=== PATIENT | female | born 1965 | race Caucasian/White ===

== ENCOUNTER → 2016-09-26 | Outpatient (CLI) | payer OTHER ==
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
== END | disposition home or self-care (01) ==
LOC: RADMRIMAIN 18:33
PROVIDERS: ATTEND Psychiatry & Neurology Neurology
DX: M50.122 Cervical disc disorder at C5-C6 level with radiculopathy (principal)
CPT/HCPCS: 72141

== ENCOUNTER → 2017-02-25 | Outpatient (CLI) | payer OTHER ==
--- NOTE | 2017-02-26 07:31 | WWHP ---
CHIEF COMPLAINT: The patient is here for her routine gynecologic exam and mammogram. HPI: This is a 51-year-old G2, P1-0-1-1 with an LMP of 2004. The patient is here to establish with this office. She states it has been about three to four years since her last pelvic exam. She has been amenorrhea since her endometrial ablation in 2004. She states she does have cramping that seems to occur month;y and is noted on the left side. She states she usually will only use over the counter pain medication for this. She states this has been going on for many years. She states she does have a history of endometriosis. PAST MEDICAL HISTORY: Chronic hypertension, bronchial asthma, elevated cholesterol, chronic neck problems and pain. MEDICATIONS: Zanaflex 4 mg t.i.d., albuterol inhaler 2 puffs p.r.n., Restoril 50 mg daily p.r.n., lisinopril 40 mg daily, TriCor 145 mg daily. ALLERGIES: ULTRAM and LIPITOR. PAST SURGICAL HISTORY: section 1986, tubal ligation in 1993, endometrial ablation 2004. PAST OB HISTORY: One section and one voluntary termination of . PAST STUDENT FINANCE ADVISOR HISTORY: She does have history of endometriosis. She has no history of STDs. SOCIAL HISTORY: She admits to smoking one pack of cigarettes per day and denies alcohol and drug use. She is single, but has been with her boyfriend for about 7 months and lives with him. She does not work outside the home. FAMILY HISTORY: Mother had pancreatic cancer. Sister has breast cancer. She has a cousin who has breast cancer and aunt with uterine cancer and another aunt with ovarian cancer. Mother also has diabetes. Father had a CVA. REVIEW OF SYSTEMS: Weight has been stable. She denies respiratory or cardiac problems. GI: She has been having some constipation. PHYSICAL EXAM: Initial blood pressure 185/95, repeat blood pressure 150/97. This is a well developed, well nourished white female who is alert and oriented x3 in no acute distress. HEENT is within normal limits. Neck supple without mass or thyromegaly. Chest and lungs: clear to auscultation. Heart: Regular rate and rhythm. Breasts are without mass or discharge. Axillary exam is negative for adenopathy. Back negative for cva tenderness. Abdomen is soft, nontender without palpable masses. Pelvic exam: Normal external genitalia. Cervix and vagina appear normal. There is no evidence of prolapse. There is no cervical motion tenderness. The uterus is mid position, nongravid size and nontender. There are no palpable adnexal masses or tenderness. Rectal exam is negative for mass or tenderness and is negative for occult blood. Extremities are nontender. IMPRESSION: 1. A 51-year-old female who is status post endometrial ablation. 2. Amenorrhea since her endometrial ablation. 3. Cyclic left pelvic cramping. Differential diagnoses will include ovulatory pain, endometriosis, adenomyosis, or pelvic cysts. PLAN: 1. PAP smear was performed. 2. Self breast examination was discussed. 3. Mammogram will be done today. 4. Pelvic ultrasound will be ordered. 5. I recommend that she follow up with Dr. Lan as soon as possible regarding her blood pressure. 6. I recommend that she quit smoking. 7. Osteoporosis prevention was discussed. 8. She will return in one year. PAIGE
--- NOTE | 2017-02-27 08:37 | MM ---
Reason for exam: screening (asymptomatic). Last mammogram was performed 10 years and 10 months ago. History: Family history of breast cancer in mother at age 55, breast cancer in paternal cousin, and breast cancer in sister at age 55. Physical Findings: A clinical breast exam by your physician is recommended on an annual basis and results should be correlated with mammographic findings. MG Screening Mammo w CAD Bilateral CC and MLO view(s) were taken. Prior study comparison: April 13, 2006, CAD bilateral diagnostic mammogram. November 17, 2003, bilateral diagnostic mammogram. The breast tissue is heterogeneously dense. This may lower the sensitivity of mammography. Right breast grouped microcalcifications upper outer quadrant at a middle depth. Left breast nodular focal asymmetry lower inner quadrant at a middle depth. ASSESSMENT: Incomplete: need additional imaging evaluation, BI-RAD 0 RECOMMENDATION: Special view mammogram of both breasts. If lesion persists on supplemental views, image directed ultrasound is recommended. [facility] will attempt to contact patient to return for supplemental views and ultrasound if indicated.
== END ==
LOC: WWCWWP 09:57
PROVIDERS: ATTEND Obstetrics & Gynecology
DX: Z12.31 Encounter for screening mammogram for malignant neoplasm of breast (principal)

== ENCOUNTER → 2017-03-06 | Outpatient (CLI) | payer OTHER ==
--- NOTE | 2017-03-09 08:56 | MM ---
Reason for exam: additional evaluation requested from abnormal screening. Last mammogram was performed less than 1 month ago. History: Family history of breast cancer in mother at age 55, breast cancer in paternal cousin, and breast cancer in sister at age 55. Physical Findings: Nurse did not find any significant physical abnormalities on exam. MG Work Up Mamm w CAD BILAT Bilateral CC and MLO view(s) were taken. Prior study comparison: February 25, 2017, bilateral MG screening mammo w CAD. April 13, 2006, CAD bilateral diagnostic mammogram. Finding #1: There is a 7 mm equal density (isodense), obscured round mass located 4 cm from the nipple in the 7 o'clock lower inner quadrant, middle position of the left breast. Finding #2: There are round, heterogeneous, grouped/clustered calcifications in the upper outer quadrant, middle position of the right breast, 5cm from the nipple. These results were verbally communicated with the patient and result sheet given to the patient on 03/06/17. ASSESSMENT: Suspicious, BI-RAD 4 RECOMMENDATION: Ultrasound of the left breast. Stereotactic core biopsy of the right breast. (right breast calcifications) Called Dr. Mao with mammographic findings and has scheduled an appointment for the patient for 03/17/17 at 3:[address] Berg. Right biopsy scheduled for 03/12/17 at 2:20. PRELIMINARY REPORT CALLED AND FAXED TO DR. BERG ON 03/09/17/TP.
--- NOTE | 2017-03-09 08:58 | USB ---
Reason for exam: additional evaluation requested from abnormal screening. History: Family history of breast cancer in mother at age 55, breast cancer in paternal cousin, and breast cancer in sister at age 55. US Breast Workup Limited LT Left breast ultrasound demonstrates a 0.4 x 0.4 x 0.4cm cystic lesion at 7 o'clock, that correlates with mammographic findings. These results were verbally communicated with the patient and result sheet given to the patient on 03/06/17. ASSESSMENT: Benign, BI-RAD 2 RECOMMENDATION: Stereotactic core biopsy. (right breast calcifications) Called Dr. Mao with mammographic findings and has scheduled an appointment for the patient for 03/17/17 at 3:[address] Berg. Right biopsy scheduled for 03/12/17 at 2:20. PRELIMINARY REPORT CALLED AND FAXED TO DR. BERG ON 03/09/17/TP.
== END | disposition home or self-care (01) ==
LOC: RADMAMWWP 13:32
PROVIDERS: ATTEND Obstetrics & Gynecology
DX: R92.8 Other abnormal and inconclusive findings on diagnostic imaging of breast (principal)
CPT/HCPCS: 76642; G0204

== ENCOUNTER → 2017-03-06 | Outpatient (CLI) | payer OTHER ==
--- NOTE | 2017-03-06 14:37 | US ---
EXAMINATION TYPE: US pelvic complete DATE OF EXAM: 03/06/2017 COMPARISON: NONE CLINICAL HISTORY: R10.2 Pelvic Pain. Left pelvic pain x 2 weeks, 2, para 1, 1, histo ry of and tubal ligation TECHNIQUE: Transabdominal (TA) Date of LMP: 2004 EXAM MEASUREMENTS: Uterus: 8.7 x 4.8 x 5.6 cm Endometrial Stripe: 0.5 cm Right Ovary: 2.2 x 1.5 x 1.9 cm Left Ovary: 3.4 x 2.6 x 2.2 cm 1. Uterus: anteverted, heterogeneous with multiple hypoechoic lesions throughout with largest measur ing 2.4cm 2. Endometrium: appears wnl 3. Right Ovary: wnl 4. Left Ovary: 2.1cm cystic area 5. Bilateral Adnexa: wnl 6. Posterior cul-de-sac: wnl IMPRESSION: 1. Uterine fibroids. 2. 2.1 cm left ovarian cyst. Follow-up 6 weeks is recommended.
== END | disposition home or self-care (01) ==
LOC: RADUSWWP 13:29
PROVIDERS: ATTEND Obstetrics & Gynecology
DX: D25.9 Leiomyoma of uterus, unspecified (principal); N83.202 Unspecified ovarian cyst, left side
CPT/HCPCS: 76856

== ENCOUNTER → 2017-03-12 | Day surgery (SDC) | payer OTHER ==
[2017-03-12 13:26] VITALS: RESP 16; BMI 25.7
--- NOTE | 2017-03-12 15:24 | MM ---
EXAMINATION TYPE: MG stereo VAD BX RT DATE OF EXAM: 03/12/2017 COMPARISON: Mammogram March 06, 2017 and older studies. CLINICAL HISTORY: Abnormal mammogram, suspicious group of calcifications. TECHNIQUE: Stereotactic guided core biopsy of right breast with clip placement and follow-up two-view mammogram.. FINDINGS: The procedure of stereotactic guided core biopsy was explained to the patient. Benefits, a lternatives, and risks were discussed. An informed consent was then obtained. [facility] was [facility]. Shortness pathway was cranial approach. I performed the localization then also performed the remainder of the procedure. Overlying skin is cleansed. Lidocai ne is used as anesthetic into the skin. Lidocaine with epinephrine is used as anesthetic into the michele per tissue. A vacuum assisted biopsy gun was used to obtain multiple core samples. The patient tolerated the procedure well without any immediate complication. The patient was kept in the radiology department for short stay after the procedure and then discharged home in stable condi tion. Targeted calcifications are identified in specimen mammogram. Post biopsy mammogram shows the clip to appear in satisfactory position relative to the targeted area of concern on the preprocedure images. No residual calcifications are identified. IMPRESSION: SUCCESSFUL, UNCOMPLICATED STEREOTACTIC GUIDED CORE BIOPSY OF AREA OF CONCERN IN THE RIGHT BREAST, FUL L PATHOLOGY RESULTS TO FOLLOW. Intermediate index of suspicion noted at time of procedure.
[2017-03-12 16:09] VITALS: BP 124/79; PULSE 75; TEMP 98
== END ==
LOC: RADMAMWWP 12:59
PROVIDERS: ATTEND Surgery
DX: R92.0 Mammographic microcalcification found on diagnostic imaging of breast (principal); N60.11 Diffuse cystic mastopathy of right breast; R92.8 Other abnormal and inconclusive findings on diagnostic imaging of breast; N60.31 Fibrosclerosis of right breast; N60.21 Fibroadenosis of right breast; Z88.8 Allergy status to other drugs, medicaments and biological substances; N60.81 Other benign mammary dysplasias of right breast
CPT/HCPCS: 88305; 19081; A4648; J2001

== ENCOUNTER 2017-11-17 11:25 | Day surgery (SDC) | payer OTHER ==
[2017-11-12 14:16] VITALS: BMI 27.8
[~2017-11-17 11:25] MED LIST: LACTATED RINGERS 1,000 ML IV SCH
[2017-11-17] MEDS ORDERED: LIDOCAINE 1% 20 ML VIAL (10MG/ML) FOR IV START INTRADERMA ONE (12:21)
[2017-11-17 12:22] VITALS: TEMP 97.9
[2017-11-17] MEDS ORDERED: PROPOFOL 10 MG/ML 20 ML VIAL IV ONE (13:04)
[2017-11-17] MEDS ORDERED: LIDOCAINE 1% INJ 10MG/ML (20 ML MDV) ONE (13:04)
[2017-11-17 13:38] VITALS: RESP 18
--- NOTE | 2017-11-17 13:43 | P.PCN ---
Date of Procedure: 11/17/17 Procedure(s) Performed: Procedure: Total colonoscopy and biopsy. Preoperative diagnosis: Change in bowel habits. Postoperative diagnosis: 1. Diminutive polyp in the distal sigmoid biopsied. 2. Grade 2 internal hemorrhoids without bleeding at the time of this exam.. Preparation: HalfLytely prep. Sedation: Was provided by anesthesia. Brief clinical history: The patient is a 52-year-old female who is referred for this evaluation for change in bowel habits. The patient reported having irritable bowel syndrome for several years. She has been having issues with constipation and may not have a bowel movement for several days. Denies bleeding or other alarm symptoms. This would be her first colonoscopy. Procedure: With the patient on her left lateral decubitus position and after informed consent and adequate sedation, the perianal area was inspected and it did not show any fissures or fistulas. There were no masses felt on digital rectal examination. The Olympus CFQ 160L video colonoscope was then inserted in the rectum in the usual fashion and advanced to the cecum. The mucosa appeared healthy. There was a diminutive polyp in the distal sigmoid which was biopsied but there were no large polyps or tumors seen or any obvious diverticular disease or other pathology. I retroflexed the endoscope in the rectum before the endoscope was withdrawn. The patient tolerated the procedure well. Plan: The patient was reassured. She will follow-up with you as planned and I recommended repeat exam in 5-10 years depending on pathology results.
[2017-11-17] MEDS ORDERED: ONDANSETRON 4 MG/2 ML VIAL IVP ONE (13:51)
[2017-11-17 14:17] VITALS: BP 134/75; PULSE 60
== END 2017-11-17 14:37 | disposition home or self-care (01) ==
LOC: ORWHC2ENDO 11:25
DX: K63.5 Polyp of colon (principal); K64.1 Second degree hemorrhoids; J44.9 Chronic obstructive pulmonary disease, unspecified; I10 Essential (primary) hypertension; E78.5 Hyperlipidemia, unspecified; Z88.8 Allergy status to other drugs, medicaments and biological substances; Z88.5 Allergy status to narcotic agent; F17.210 Nicotine dependence, cigarettes, uncomplicated; Z79.1 Long term (current) use of non-steroidal anti-inflammatories (NSAID); Z79.891 Long term (current) use of opiate analgesic; Z79.899 Other long term (current) drug therapy
CPT/HCPCS: 88305; 45380; J2405; J2001; J2704

== ENCOUNTER → 2018-01-05 | Outpatient (CLI) | payer OTHER ==
[2018-01-01 15:31] VITALS: BMI 29.5
[2018-01-05 12:28] VITALS: BP 139/75; PULSE 72; RESP 16
--- NOTE | 2018-01-05 20:50 | P.PAINCN ---
History of Present Illness - Reason for Consult Consult date: 01/05/18 - Chief Complaint Severe neck pain - History of Present Illness This is 52 years old female with a chronic history of severe neck pain with radiation to the upper extremity, pain started 2 years ago, she reported that the pain started while she was lifting the bag of dog food, the pain is constant and associated with numbness and tingling sensation more on the right upper extremity, associated with numbness and tingling sensation, she was done physical therapy without any benefit, and she had injection done by an urologist without any benefit, currently she is complaining of neck pain with numbness and tingling sensation ,but no weakness, she is able to use her upper extremity without difficulty, but the intensity of the pain interfering with her quality of life, the intensity of the pain 8/10 and increases to a 10 over 10, she is currently using Motrin 800 mg 3 times a day Lyrica 100 mg 3 times a day and [place] 7.5/325 every 6 hours, she denies any change in the bowel movement or urination she denies any motor or sensory deficits, and no fever or night sweats she denies any suicidal ideation Past Medical History Past Medical History: COPD, Hyperlipidemia, Hypertension, Musculoskeletal Disorder Additional Past Medical History / Comment(s): herniated discs in neck History of Any Multi-Drug Resistant Organisms: None Reported Past Surgical History: Section, Orthopedic Surgery, Tubal Ligation Additional Past Surgical History / Comment(s): RT LITTLE TOE SX. GLASS REMOVED FROM FACE Past Anesthesia/Blood Transfusion Reactions: Previous Problems w/ Anesthesia Additional Past Anesthesia/Blood Transfusion Reaction / Comm: woke up during surgery Past Psychological History: No Psychological Hx Reported Smoking Status: Current every day smoker Past Alcohol Use History: None Reported Additional Past Alcohol Use History / Comment(s): SMOKES 1/2 - 1PPD SINCE AGE 17 Past Drug Use History: None Reported - Past Family History Father Family Medical History: Coronary Artery Disease (CAD) Sister(s) Family Medical History: Cancer, Hypertension Additional Family Medical History / Comment(s): breast Medications and Allergies Home Medications Medication Instructions Recorded Confirmed Type Albuterol Inhaler [Ventolin Hfa 1 - 2 puff INHALATION Q6HR PRN 11/17/15 History Inhaler] Ibuprofen [Motrin] 800 mg PO Q6HR PRN 11/17/15 01/05/18 History Fenofibrate Nanocrystallized 145 mg PO DAILY 03/09/17 01/05/18 History [Tricor] Lisinopril 40 mg PO DAILY 03/09/17 01/05/18 History Orphenadrine [Norflex] 100 mg PO Q12H 03/09/17 01/05/18 History Ezetimibe [Zetia] 10 mg PO DAILY 11/12/17 01/05/18 History Pravastatin Sodium [Pravachol] 80 mg PO DAILY 11/12/17 01/05/18 History Pregabalin [Lyrica] 100 mg PO TID 11/12/17 01/05/18 History amLODIPine [Norvasc] 10 mg PO DAILY 11/12/17 01/05/18 History HYDROcodone/APAP 7.5-325MG [[place] 1 tab PO Q6HR PRN 01/01/18 01/05/18 History 7.5-325] Varenicline [Chantix Continuing 1 mg PO BID 01/01/18 01/05/18 History Pack] Allergies Allergy/AdvReac Type Severity Reaction Status Date / Time atorvastatin [From Lipitor] Allergy Nausea Verified 01/05/18 12:18 tramadol Allergy Nausea & Verified 01/05/18 12:18 Vomiting Physical Exam Vitals: Vital Signs Pulse Resp BP Pulse Ox 01/05/18 12:19 72 16 139/75 98 Social history : smoker , NO ETOH , NO Illegal drugs use . Review of Systems : 1- Constitutional : no chills , no fever , no night sweats , 2- Ears : no ear discharge , no change in hearing 3-Nose, Mouth ,Throat ; no bleeding gums, no sore throat , no epistaxis , 4-Cardiovascular : Denies chest pain, , no orthopnea , no palpitation 5-Respiratory : Denies cough , no dyspnea , no hemoptysis 6-Gastrointestinal :, no change in bowel habits , no coffee- ground emesis . 7-Genitourinary : No hematuria , no discharge , no incontinence, 8-Musculoskeletal : No gait dysfunction , report neck pain , right upper extremity 9- Neurological : no ataxia , no tremor , no sezure , 10-Psychatric , no suicidal ideation no hallucination 11- Endocrine : no cold intolerence , no polyuria , no polydypsia , 12-Hematologic : no easy bleeding , no easy brusing , 13-Allergic / immunology : no angioedema , no wheezing ,no allergic rhinitis 14-Integumentary : no brttle nails , no change hair / nails , no foot/leg ulcers . Physical Examinations : 1-Constitutional : Cooperative , not in acute distress . 2-HEENT : nech ; supple , no Lymphadenopathy , no Thyromegaly , :eyes , no icterus, no photophobia . ENT : , normal oropharynx , no Thrush 3- Respiratory : Chest clear to auscultations Bilaterally , no wheezing . 4- Cardiovascular : regular rate and rhythem , S1 , S2 , no S3 , no S4. 5- Gastrointestinal: abdomen soft no tenderness , no organomegally . 6- Genitourinary : Defferred . 7-Integumentary : No cellulitis , no ulcers , normal skin turgor , no cyanotic . 8- neurologic : Cranial nerve II to XII intact , no focal neurological deffecit 9-psychatric : alert , oriented X 3 , appropriate affect , intact judgment and insight . 10-Lymphatic : no Lymphadenopathy. 11- musculoskeltal: normal gait Cervical Spine motor stregnth in the deltoid and biceps, normal right side , normal Left side motor stregnth biceps and the wrist extensors normal right side ,normal left side . motor stregnth in the triceps muscle . normal Right side , normal Left side deep tendon reflexes normal at the biceps , normal at Brachioradialis , normal at triceps. positive cervical facet loading test . Multiple trigger point in the right sided cervical paravertebral muscles Lumber spine moter stegnth lower extremities ,thigh and legs 5/5 Right side , 5/5 Left side Results Comments: MRI of the cervical spine= cervical disc herniation at C5 6 and C6 7 Nerve conduction studies/EMG showed ulnar nerve compression and C8 nerve root irritation Assessment and Plan Plan: Assessment and plan= cervical radiculopathy , cervical disc herniation Patient will be good candidate to have cervical epidural steroid injection under fluoroscopy guidance at the C7-T1 level Patient currently getting prescription for Motrin 800 mg 3 times a day Lyrica the milligrams 3 times a day and [place] 7.5/ 320 far from her primary care. Time with Patient: Greater than 30 PQRS Measure Charge Sheet Measure #130: Documentation of Current Meds in Medical Chart: Patient's medications documented in chart Measure #226: Tobacco Use: Screen & Cessation Intervention: Pt screened for tobacco use AND intervention given Measure #111: Pneumonia Vaccination: Pneumococcal vaccine NOT administered or previously given Measure #47: Advance Care Plan: Advance care planning discussed & documented, plan or surrogate given Measure #412: Opioid Treatment Agreement: No documentation of signed opioid treatment agreement Measure #408: Opioid Therapy Follow-up Evaluation: Patient had NO f/u eval minimum every 3 months during opioid therapy Measure #317: Preventitive Care & Scrn High Bld Press & F/U: Pre-hypertensive or hypertensive BP documented, pt will f/u with PCP Measure #128: Body Mass Index (BMI) Screening & Follow-up: BMI documented ABOVE normal parameters - f/u documented Measure #131: Pain Assessment & Follow-up: Pain positive & plan documented, Follow-up scheduled Measure #431: Unhealthy Alcohol Use Preventative Care & Scrn: Patient identified as unhealthy alcohol user; counseling given PQRS Narrative: Smoking Status Current every day smoker Do You Want the Pneumonia No Vaccine AT THIS TIME? Blood Pressure 139/75 Pain Intensity [Bilateral 9 Posterior Neck] Scale Used Numeric (1 - 10) Hx Alcohol Use (MH) No Home Medications: Ambulatory Orders Albuterol Inhaler [Ventolin Hfa Inhaler] 1 - 2 puff INHALATION Q6HR PRN Ibuprofen [Motrin] 800 mg PO Q6HR PRN 11/17/15 Fenofibrate Nanocrystallized [Tricor] 145 mg PO DAILY 03/09/17 Lisinopril 40 mg PO DAILY 03/09/17 Orphenadrine [Norflex] 100 mg PO Q12H 03/09/17 Ezetimibe [Zetia] 10 mg PO DAILY 11/12/17 Pravastatin Sodium [Pravachol] 80 mg PO DAILY 11/12/17 Pregabalin [Lyrica] 100 mg PO TID 11/12/17 amLODIPine [Norvasc] 10 mg PO DAILY 11/12/17 HYDROcodone/APAP 7.5-325MG [[place] 7.5-325] 1 tab PO Q6HR PRN 01/01/18 Varenicline [Chantix Continuing Pack] 1 mg PO BID 01/01/18
== END | disposition home or self-care (01) ==
LOC: PNWHC3 12:02
PROVIDERS: ATTEND Specialist
DX: G89.29 Other chronic pain (principal); M50.222 Other cervical disc displacement at C5-C6 level; M54.12 Radiculopathy, cervical region; I10 Essential (primary) hypertension; M79.9 Soft tissue disorder, unspecified; E78.5 Hyperlipidemia, unspecified; J44.9 Chronic obstructive pulmonary disease, unspecified; F17.200 Nicotine dependence, unspecified, uncomplicated; Z79.899 Other long term (current) drug therapy; Z79.1 Long term (current) use of non-steroidal anti-inflammatories (NSAID); Z79.891 Long term (current) use of opiate analgesic; Z88.6 Allergy status to analgesic agent; Z88.8 Allergy status to other drugs, medicaments and biological substances
CPT/HCPCS: 99211

== ENCOUNTER 2018-02-01 09:56 | Day surgery (SDC) | payer OTHER ==
[2018-01-27 11:45] VITALS: BMI 30.1
[2018-02-01 10:40] VITALS: RESP 18; TEMP 98.4
[2018-02-01] MEDS ORDERED: LIDOCAINE 1% 20 ML VIAL (10MG/ML) FOR IV START INTRADERMA ONE (10:42)
--- NOTE | 2018-02-01 11:31 | P.PCN ---
Date of Procedure: 02/01/18 Procedure(s) Performed: . PROCEDURE 1. Cervical epidural steroid injection under fluoroscopic guidance, C7-T1 2. Cervical epidurogram. PREOPERATIVE DIAGNOSIS: 1- Cervical herniated Disc Diseases 2- Cervical radiculopathy. POSTOPERATIVE DIAGNOSIS: : 1- Cervical herniated Disc Diseases , 2- Cervical radiculopathy. ANESTHESIA: Local anesthesia with 1% lidocaine and IV sedation with Versed 2 mg and Fentanyl 50 mcg. EBL 0 PROCEDURE INDICATION: The patient with neck pain and radiculitis unresponsive to conservative treatment consents for procedure. PROCEDURE DESCRIPTION / TECHNIQUE: The patient was seen and identified in the preoperative area. Risks, benefits, complications, including but not limited to infections ,bleeding , allergic reactions to the medications ,and not complete pain releife, and alternatives were discussed with the patient, the patient agreed to proceed with the procedure and signed the consent. Patient was taken to the OR and time out was completed. The patient was placed in the prone position on the procedure table. A pillow was placed under the patients chest to increase the cervical interlaminar space. The cervical area was prepped and draped in the usual sterile fashion. Vital signs were closely monitored during the procedure. Conscious sedation was used during the procedure to decrease patients anxiety. Using anterior-posterior fluoroscopy, the C7-T1 interlaminar space was identified and the skin over this site was marked and then infiltrated with 1% lidocaine subcutaneously. Subsequently, a 20-gauge 3-1/2-inch Tuohy epidural needle was inserted and advanced toward the epidural space by means of the `` hanging-drop technique and guided by AP and lateral fluoroscopy. The correct needle position in the epidural space was verified with the injection of 2 mL of the water soluble contrast dye Isovue-200 and observing an excellent epidurogram with the epidural spread of the dye, after negative aspiration for blood and CSF and in the absence of paresthesias. Again after negative aspiration, mixture containing 20 mg Dexamethasone and 2 ml of preservative- free normal saline injected and a washout of epidurogram was seen. Needle was withdrawn intact, skin was cleansed, and bandages were applied. Complications= none. Disposition= patient was placed in supine position and transferred to the recovery room area in stable condition and there was no evidence of upper or lower extremity motor or sensory deficit after the procedure patient was discharged from recovery room after discharge criteria met and home discharge instructions was given by the staff and patient will follow with the pain clinic in 2-4 weeks
[2018-02-01] MEDS ORDERED: KETOROLAC 30 MG/ML 1 ML VIAL IVP ONE (11:49)
[2018-02-01 11:57] VITALS: BP 119/81; PULSE 78
[2018-02-01] MEDS ORDERED: IV FLUID CONTINUATION 700 ML IV ONE (11:59)
--- NOTE | 2018-02-01 13:02 | FL ---
EXAMINATION TYPE: FL guided pain mgmt statistic DATE OF EXAM: 02/01/2018 HISTORY: Flouroscopy time 2 seconds of fluoroscopy provided. IMPRESSION: 1. Fluoroscopy time.
== END 2018-02-01 12:11 | disposition home or self-care (01) ==
LOC: ORPAIN 09:56
PROVIDERS: ATTEND Specialist
DX: M50.10 Cervical disc disorder with radiculopathy, unspecified cervical region (principal); J44.9 Chronic obstructive pulmonary disease, unspecified; E78.5 Hyperlipidemia, unspecified; I10 Essential (primary) hypertension; F17.210 Nicotine dependence, cigarettes, uncomplicated; Z79.899 Other long term (current) drug therapy; Z98.51 Tubal ligation status; Z88.5 Allergy status to narcotic agent; Z88.8 Allergy status to other drugs, medicaments and biological substances
CPT/HCPCS: 81025; 62321; J2250; J1100; J3010; J1885; Q9966

== ENCOUNTER → 2018-02-18 | Outpatient (CLI) | payer OTHER ==
[2018-02-18 14:22] VITALS: BP 137/87; PULSE 75; RESP 16
--- NOTE | 2018-02-20 22:04 | P.PAINPG ---
Subjective Progress Note Date: 02/18/18 Principal diagnosis: Cervical radiculopathy this is a 52-year-old will move the history of neck pain and arm pain. She presents today in follow-up after having undergone cervical epidural steroid injections. She reports that these did help reduce her pain. She denies any doubt about this function. She is interested in instructions regarding further pain management. Objective - Vital Signs Vital signs: Vital Signs Temp Pulse 75 02/18/18 14:09 Resp 16 02/18/18 14:09 BP 137/87 02/18/18 14:09 Pulse Ox 98 02/18/18 14:09 - Exam General: the patient is alert and oriented. She is not sedated. She appears in no acute distress. Respiratory: patient is mostly clear to auscultation. She does have some expiratory wheezes with laughing. cardiovascular: regular rate and rhythm abdomen: nontender nondistended extremities: no cyanosis clubbing or edema musculoskeletal: she demonstrates good strength symmetrically in the upper and lower extremities neurologic: no focal motor or sensory deficits in the upper or lower extremities. Reflexes are preserved in the upper extremities. Assessment and Plan (1) Cervical radiculopathy Narrative/Plan: Patient reports could benefit from previous cervical steroid injection. She can follow up for repeated this procedure on an as-needed basis provided she receives less than three injections in six months. Time. She will continue to receive her medications from her primary care physician. Current Visit: Yes Status: Acute Code(s): M54.12 - RADICULOPATHY, CERVICAL REGION SNOMED Code(s): 73345605 PQRS Measure Charge Sheet Measure #130: Documentation of Current Meds in Medical Chart: Patient's medications documented in chart Measure #226: Tobacco Use: Screen & Cessation Intervention: Pt screened for tobacco use AND intervention given Measure #111: Pneumonia Vaccination: Pneumococcal vaccine NOT administered or previously given Measure #47: Advance Care Plan: Advance care planning discussed & documented, pt chose/unable to give Measure #412: Opioid Treatment Agreement: No documentation of signed opioid treatment agreement Measure #408: Opioid Therapy Follow-up Evaluation: Patient had NO f/u eval minimum every 3 months during opioid therapy Measure #317: Preventitive Care & Scrn High Bld Press & F/U: Normal blood pressure, f/u not required Measure #128: Body Mass Index (BMI) Screening & Follow-up: BMI documented ABOVE normal parameters - f/u documented Measure #131: Pain Assessment & Follow-up: Pain positive & plan documented Measure #431: Unhealthy Alcohol Use Preventative Care & Scrn: Patient not identified as an unhealthy alcohol user PQRS Narrative: Smoking Status Current every day smoker Do You Want the Pneumonia No Vaccine AT THIS TIME? Blood Pressure 137/87 Pain Intensity [Posterior Neck 8 ] Scale Used Numeric (1 - 10) Hx Alcohol Use (MH) No Home Medications: Ambulatory Orders Albuterol Inhaler [Ventolin Hfa Inhaler] 1 - 2 puff INHALATION Q6HR PRN Ibuprofen [Motrin] 800 mg PO Q6HR PRN 11/17/15 Fenofibrate Nanocrystallized [Tricor] 145 mg PO DAILY 03/09/17 Lisinopril 40 mg PO DAILY 03/09/17 Orphenadrine [Norflex] 100 mg PO DAILY 03/09/17 Ezetimibe [Zetia] 10 mg PO DAILY 11/12/17 Pravastatin Sodium [Pravachol] 80 mg PO DAILY 11/12/17 Pregabalin [Lyrica] 100 mg PO TID 11/12/17 amLODIPine [Norvasc] 10 mg PO DAILY 11/12/17 HYDROcodone/APAP 7.5-325MG [[place] 7.5-325] 1 tab PO Q6HR PRN 01/01/18 Varenicline [Chantix Continuing Pack] 1 mg PO BID 01/01/18 Ergocalciferol (Vitamin D2) [Vitamin D2] 50,000 unit PO Q30D 02/16/18 Controlled Substance Measures - Controlled Substance Measures Is patient prescribed a controlled substance at discharge?: No
== END | disposition home or self-care (01) ==
LOC: PNWHC3 13:25
PROVIDERS: ATTEND Pain Medicine Pain Medicine
DX: M54.12 Radiculopathy, cervical region (principal); F17.200 Nicotine dependence, unspecified, uncomplicated; Z79.899 Other long term (current) drug therapy; Z79.1 Long term (current) use of non-steroidal anti-inflammatories (NSAID); Z79.891 Long term (current) use of opiate analgesic
CPT/HCPCS: 99211

== ENCOUNTER 2018-03-04 06:06 | Day surgery (SDC) | payer OTHER ==
[2018-03-01 14:58] VITALS: BMI 29.2
[2018-03-04 06:32] VITALS: TEMP 98
[2018-03-04] MEDS ORDERED: LIDOCAINE 1% 20 ML VIAL (10MG/ML) FOR IV START INTRADERMA ONE (06:43)
[2018-03-04] MEDS ORDERED: LACTATED RINGERS 1,000 ML IV ONE (06:43)
--- NOTE | 2018-03-04 07:45 | P.PCN ---
Date of Procedure: 03/04/18 Procedure(s) Performed: Procedure= Thoracic epidural blood patch. Preoperative diagnosis= postdural puncture headache. Postoperative diagnoses= post dural puncture headache. Indication for the procedure= patient developed headache after cervical epidural steroid injection, the procedure was done 02/01/2018, patient reports she continued to have a headache after the procedure, and the headache is positional increased with sitting position or standing position, relieved with supine position, patient tried caffeine and naproxen for a few weeks, headache persists in spite of conservative treatment, there is no focal neurological deficit, no fever, no neck stiffness, headache worse with sitting and standing position, and improved with lying supine, for this reason patient is a good candidate for epidural blood patch. anesthesia= IV sedation with Versed 1 mg ,and fentanyl 50 mc ,and local infiltration with lidocaine 1% 3 mL. Complications= none. Description of the procedure= patient identified risks and benefits of the procedure explained to the patient and patient agreed with proceeding, vital signs monitored during the procedure and IV sedation given to decrease anxiety, Back lumbar area prepped with chlorhexidine 3 times, then drape applied the local infiltration of the skin and subcutaneous tissue with lidocaine 1% 3 mL at T1-T2 interlaminar space then 20-gauge Tuohy needle advanced slowly at T1- T2 interlaminar space, There was positive loss of resistance to normal saline, no heme no paresthesia no cerebrospinal fluid, needle placement confirmed with the fluoroscopy and with the injection of Isovue 200 and 3 mL injected after negative aspiration , which showed appropriate spread in the epidural space , the needle placement confirmed with a lateral view , then after negative aspiration , 7 ML of the blood taken from the patient left wrist area, under strict sterile technique, and after the area prepped with a chlorhexidine 3 times using 20-gauge Angiocath , and under sterile techn, the blood injected in the epidural space after negative aspiration for heme or CSF and there was no paresthesia ,the blood injected slowley ,then the needle removed intact the skin cleaned and the , bandage applied ,and patient discharged home in stable condition after discharge criteria met, and patient will follow up with the clinic in 1 weeks
[2018-03-04] MEDS ORDERED: IV FLUID CONTINUATION 1,000 ML IV ONE (07:46)
[2018-03-04 08:00] VITALS: BP 123/83; PULSE 73; RESP 18
--- NOTE | 2018-03-04 08:41 | FL ---
EXAMINATION TYPE: FL guided pain mgmt statistic DATE OF EXAM: 03/04/2018 COMPARISON: NONE HISTORY: Fluoroscopic guidance for cervical blood patch TECHNIQUE: Fluoroscopy. FINDINGS/IMPRESSION: Fluoroscopic guidance was provided during procedure performed by Dr. Escobar. A total of 8 seconds of fluoroscopic time was utilized during the procedure and 2 spot images was ac quired demonstrating localization over the cervical thoracic spine.
== END 2018-03-04 08:16 | disposition home or self-care (01) ==
LOC: ORPAIN 06:06
PROVIDERS: ATTEND Specialist
DX: G97.1 Other reaction to spinal and lumbar puncture (principal); Z88.5 Allergy status to narcotic agent; Z88.8 Allergy status to other drugs, medicaments and biological substances
CPT/HCPCS: 81025; 62273; J2250; J3010; Q9966; 99152

== ENCOUNTER → 2018-04-06 | Outpatient (CLI) | payer OTHER ==
[2018-04-06 10:52] VITALS: BP 134/83; PULSE 74; TEMP 98.2; BMI 33.5
--- NOTE | 2018-04-06 11:48 | P.HPOB ---
History of Present Illness H&P Date: 04/06/18 Chief Complaint: The patient is here for her routine gynecologic exam and mammogram. This is a 52 year old with an LMP of 2004. She status post endometrial ablation and has been amenorrhea Since the ablation in 2004. She is without gynecologic complaints and denies any hot flashes or vaginal bleeding. She had an abnormal mammogram last year and underwent a right breast biopsy which showed fibrocystic changes. She has not had a mammogram since then. She was having some left pelvic pains and had a pelvic ultrasound showed a 2.1 cm left ovarian cyst with internal echoes. I had recommended a repeat ultrasound in 6 to 8 weeks. She states she did not do this. The pain has resolved. Review of Systems She states she has gained about 50 pounds over the last year and attributes this to taking Tricor. She has since discontinued this medication. She denies respiratory, cardiac, or G.I. problems. She is currently being seen for a "bulging right eye." Past Medical History Past Medical History: Asthma, COPD, Hyperlipidemia, Hypertension, Musculoskeletal Disorder Additional Past Medical History / Comment(s): herniated discs in neck; "Spinal Headache from last Epidural". Glaucoma. 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 She did have a history of endometriosis. History of Any Multi-Drug Resistant Organisms: None Reported Past Surgical History: Section, Orthopedic Surgery, Tubal Ligation, Uterine Ablation (2004) Additional Past Surgical History / Comment(s): RT LITTLE TOE SX. GLASS REMOVED FROM FACE Past Anesthesia/Blood Transfusion Reactions: Previous Problems w/ Anesthesia Additional Past Anesthesia/Blood Transfusion Reaction / Comment(s): TOOK LONGER WAKING UP Past Psychological History: No Psychological Hx Reported Smoking Status: Current every day smoker (Previous lead one pack of cigarettes, now down to half pack per day.) Past Alcohol Use History: None Reported Additional Past Alcohol Use History / Comment(s): SMOKES 1/2 - 1PPD SINCE AGE 17 Past Drug Use History: None Reported Additional History: She is single. - Past Family History Father Family Medical History: Coronary Artery Disease (CAD), CVA/TIA Sister(s) Family Medical History: Cancer (Breast), Hypertension Mother Family Medical History: Cancer (Pancreatic), Diabetes Mellitus Additional Family Medical History / Comment(s): She has a cousin who had breast cancer and an intermittent uterine cancer. Another hand had ovarian cancer. Medications and Allergies Home Medications Medication Instructions Recorded Confirmed Type Albuterol Inhaler [Ventolin Hfa 1 - 2 puff INHALATION Q6HR PRN 11/17/15 History Inhaler] Ibuprofen [Motrin] 800 mg PO Q6HR PRN 11/17/15 04/06/18 History Lisinopril 40 mg PO DAILY 03/09/17 04/06/18 History Orphenadrine [Norflex] 100 mg PO DAILY 03/09/17 04/06/18 History Ezetimibe [Zetia] 10 mg PO DAILY 11/12/17 04/06/18 History Pravastatin Sodium [Pravachol] 80 mg PO DAILY 11/12/17 04/06/18 History Pregabalin [Lyrica] 100 mg PO TID 11/12/17 04/06/18 History amLODIPine [Norvasc] 10 mg PO DAILY 11/12/17 04/06/18 History HYDROcodone/APAP 7.5-325MG [[place] 1 tab PO Q96H PRN 01/01/18 04/06/18 History 7.5-325] Varenicline [Chantix Continuing 1 mg PO DAILY 01/01/18 04/06/18 History Pack] Ergocalciferol (Vitamin D2) 50,000 unit PO Q30D 02/16/18 04/06/18 History [Vitamin D2] Allergies Allergy/AdvReac Type Severity Reaction Status Date / Time atorvastatin [From Lipitor] Allergy Nausea Verified 04/06/18 10:38 tramadol Allergy Nausea & Verified 04/06/18 10:38 Vomiting Exam Vital Signs Temp Pulse BP 04/06/18 10:38 98.2 F 74 134/83 Intake and Output 04/05/18 04/06/18 04/06/18 22:59 06:59 14:59 Other: Weight 88.451 kg Height 5'4", BMI 33.5. This is a well-developed well-nourished heavyset white female who is alert and oriented times 3 in no acute distress. HEENT: Within normal limits. NECK: Supple without mass or thyromegaly. CHEST AND LUNGS: Clear to auscultation. HEART: Regular rate and rhythm. BREASTS: Are without mass or discharge. AXILLARY EXAM: Negative for adenopathy. BACK: Negative for CVA tenderness. ABDOMEN: Soft, nontender, without palpable masses. PELVIC EXAM: Normal external genitalia with minimal atrophy. Cervix and vagina appear normal with minimal atrophy. There is no unusual discharge. There is no evidence of prolapse. The uterus is midposition, nongravid size and nontender. There are no palpable adnexal masses or tenderness. RECTAL EXAM: rectovaginal exam is negative for mass or tenderness and is negative for occult blood. EXTREMITIES: Nontender. IMPRESSION: 1. 52 year old perimenopausal female with normal gynecologic exam. The patient has been amenorrhea extensor ablation in 2004. 2. History of abnormal mammogram one year ago status post right breast biopsy showing fibrocystic changes. 3. History of 2.1 cm complex ovarian cyst on 03/06/2017 by ultrasound. Her pelvic pain has since resolved. PLAN: 1. Pap smear was deferred since she had a normal one last year. 2. Self breast awareness was discussed. 3. Diagnostic mammogram will be done today. 4. Vaginal probe pelvic ultrasound will be done today for follow-up on the left ovarian cyst. 5. Osteoporosis prevention was discussed. 6. She will return in one year.
--- NOTE | 2018-04-06 14:19 | US ---
EXAMINATION TYPE: US pelvic complete DATE OF EXAM: 04/06/2018 COMPARISON: Previous dated 03/06/2017 CLINICAL HISTORY: N83.0 OVARIAN CYST. Patient here for Dr Daylin ortega and he wanted lt ov cyst for 201 7 followed up, no pain for patient today TECHNIQUE: TA. Transabdominal sonographic images of the pelvis were acquired. Patient filled bladd er for exam Date of LMP: previous ablation 12 yrs ago EXAM MEASUREMENTS: Uterus: 8.2 x 4.3 x 4.1 cm Endometrial Stripe: 0.8 cm Right Ovary: 1.7 x 2.1 x 1.3 cm Left Ovary: 2.0 x 2.2 x 1.9 cm 1. Uterus: Anteverted heterogeneous fundus with potential multiple fibroids, largest measured toda y midline = 2.9cm 2. Endometrium: Poorly visualized. 3. Right Ovary: wnl 4. Left Ovary: 1.0cm follicle seen 5. Bilateral Adnexa: wnl 6. Posterior cul-de-sac: wnl IMPRESSION: Compatible with fibroid uterus, similar to prior exam.
--- NOTE | 2018-04-06 15:13 | MM ---
Reason for exam: additional evaluation requested from prior study. Last mammogram was performed 1 year and 1 month ago. History: Family history of breast cancer in mother at age 55, breast cancer in paternal cousin, and breast cancer in sister at age 55. Benign MG stereo VAD BX RT of the right breast, March 12, 2017. Physical Findings: Dr. Mao did breast exam. MG Diagnostic Mammo w CAD MONSE Bilateral CC and MLO view(s) were taken. Prior study comparison: March 06, 2017, bilateral MG work up mamm w CAD BILAT. February 25, 2017, bilateral MG screening mammo w CAD. There are scattered fibroglandular densities. No significant new finding since prior studies. These results were verbally communicated with the patient and result sheet given to the patient on 04/06/18. ASSESSMENT: Benign, BI-RAD 2 RECOMMENDATION: Routine screening mammogram of both breasts in 1 year.
--- NOTE | 2018-04-07 10:12 | P.PN ---
Progress Note - Text Progress Note Date: 04/07/18 OUTPATIENT FOLLOW-UP NOTE TEST(S)/RESULTS: pelvic ultrasound done on 04/06/2018 shows a 1 cm simple left ovarian cyst and a 2.9 cm uterine fibroids. METHOD OF NOTIFICATION: the patient was notified by phone PATIENT COMMENTS: the patient understands the results. DIAGNOSIS: small uterine fibroid and simple 1 cm left ovarian cyst. DISCUSSION: this was a follow-up ultrasound for a 2.1 cm left ovarian cyst from the prior year. The small uterine fibroid was explained to the patient and she understands that this is a benign finding. PLAN: she will return in one year.
== END ==
LOC: WWCWWP 10:22
PROVIDERS: ATTEND Obstetrics & Gynecology
DX: Z12.31 Encounter for screening mammogram for malignant neoplasm of breast (principal); N83.202 Unspecified ovarian cyst, left side
CPT/HCPCS: 76856; 77066

== ENCOUNTER → 2018-04-08 | Outpatient (CLI) | payer OTHER ==
--- NOTE | 2018-04-08 15:45 | CT ---
CT orbits HISTORY: Proptosis Helical acquisition obtained through the orbits following 100 cc Isovue-300 IV. Coronal reconstructio ns performed. Patient is canted within the gantry, asymmetric appearance in the axial plane results from technique. Extraocular muscles thought to be normal. Proptosis is noted on the right. Vasculature appears withi n normal limits. No orbital mass. The globes are intact. Probable mucus retention cysts present withi n the antrum on the right. Suspect periapical abscesses along the multiple teeth. Mild mucosal thicke chad present within the left maxillary sinus. IMPRESSION: Proptosis, thyroid associated orbitopathy not evident.
== END | disposition home or self-care (01) ==
LOC: RADCTMAIN 13:40
PROVIDERS: ATTEND Ophthalmology
DX: H05.20 Unspecified exophthalmos (principal)
CPT/HCPCS: 70481; Q9967

== ENCOUNTER → 2018-04-22 | Outpatient (CLI) | payer OTHER ==
--- NOTE | 2018-04-23 11:20 | MR ---
EXAMINATION TYPE: MR cervical spine wo/w con DATE OF EXAM: 04/22/2018 COMPARISON: HISTORY: Neck pain into pilar arms TECHNIQUE: Multiplanar, multisequence images of the cervical spine were acquired utilizing 8.5 mL intravenous Ga davist gadolinium contrast. Diffusion weighted imaging was performed. C2-C3: Some facet arthropathy encroaches somewhat on the left neural foramen, no central stenosis or disc herniation. C3-C4: Small posterior disc bulge causes only slight anterior mass effect on the thecal sac. No centr al stenosis or foraminal encroachment. C4-C5: Lateral extension of endplate disc complex encroaches mildly on the right neural foramen. No s ignificant central stenosis despite small central posterior disc bulge. C5-C6: Posterior extension of endplate disc complex causes some mild canal stenosis, lateral extensio n endplate disc complex results in foraminal encroachment bilaterally left greater than right. C6-C7: Posterior extension endplate disc complex causes mild central stenosis, there is bilateral for aminal encroachment due to lateral extension endplate disc complex. C7-T1: No evidence for degenerative disc disease. No disc bulge/herniation or protrusion. No Canal stenosis. Foramina are patent bilaterally. Cervical segments are intact. There is normal alignment. Cervical spinal cord is of normal signal. Craniovertebral junction relationships are within normal limits. There is multilevel spondylosis, s ome loss of disc height signal is greatest at C5-6 and C6-7, is endplate discogenic marrow signal td nge. No abnormal enhancement following contrast menstruation. IMPRESSION: Mild degenerative disc disease, multilevel foraminal encroachment.
== END | disposition home or self-care (01) ==
LOC: RADMRIMAIN 17:29
PROVIDERS: ATTEND Family Medicine
DX: M50.30 Other cervical disc degeneration, unspecified cervical region (principal)
CPT/HCPCS: 72156; A9581

== ENCOUNTER → 2019-04-12 | Outpatient (CLI) | payer OTHER ==
[2019-04-12 11:06] VITALS: BP 159/89; PULSE 71; RESP 18; TEMP 98.3; BMI 33.1
--- NOTE | 2019-04-12 12:30 | P.HPOB ---
History of Present Illness H&P Date: 04/12/19 Chief Complaint: The patient is here for her routine gynecologic exam and ma mmogram. This is a 53-year-old with an LMP of 2004. The patient is without gynecologic complaints. She states she has occasional hot flashes which are not very severe. She has been amenorrheic sensor endometrial ablation in 2004. Review of Systems The patient has lost 3 pounds over the last year. She denies respiratory, cardiac, or G.I. problems. Past Medical History Past Medical History: Asthma, COPD, Hyperlipidemia, Hypertension, Musculoskeletal Disorder Additional Past Medical History / Comment(s): herniated discs in neck; "Spinal Headache from last Epidural". Glaucoma. 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 She did have a history of endometriosis. Uterine fibroids with largest measuring 2.9 cm in 2018. History of Any Multi-Drug Resistant Organisms: None Reported Past Surgical History: Section, Orthopedic Surgery, Tubal Ligation, Uterine Ablation Additional Past Surgical History / Comment(s): RT LITTLE TOE SX. GLASS REMOVED FROM FACE Past Anesthesia/Blood Transfusion Reactions: Previous Problems w/ Anesthesia Additional Past Anesthesia/Blood Transfusion Reaction / Comment(s): TOOK LONGER WAKING UP Past Psychological History: No Psychological Hx Reported Smoking Status: Current every day smoker (Half to one pack per day.) Past Alcohol Use History: None Reported Additional Past Alcohol Use History / Comment(s): SMOKES 1/2 - 1PPD SINCE AGE 17 Past Drug Use History: Marijuana Additional History: She is single. - Past Family History Father Family Medical History: Coronary Artery Disease (CAD), CVA/TIA Sister(s) Family Medical History: Cancer, Hypertension Additional Family Medical History / Comment(s): breast cancer. Mother Family Medical History: Cancer, Diabetes Mellitus Additional Family Medical History / Comment(s): Pancreatic cancer. She has a cousin who had breast cancer and an intermittent uterine cancer. Another hand had ovarian cancer. Brother(s) Family Medical History: Myocardial Infarction (VT) Medications and Allergies Home Medications Medication Instructions Recorded Confirmed Type Albuterol Inhaler [Ventolin Hfa 1 - 2 puff INHALATION Q6HR PRN 11/17/15 04/12/19 History Inhaler] Ibuprofen [Motrin] 800 mg PO Q6HR PRN 11/17/15 04/12/19 History Lisinopril 40 mg PO DAILY 03/09/17 04/12/19 History Pravastatin Sodium [Pravachol] 80 mg PO DAILY 11/12/17 04/12/19 History HYDROcodone/APAP 7.5-325MG [[place] 1 tab PO Q96H PRN 01/01/18 04/12/19 History 7.5-325] Ergocalciferol (Vitamin D2) 50,000 unit PO Q30D 02/16/18 04/12/19 History [Vitamin D2] Gabapentin 800 mg PO BID 04/12/19 04/12/19 History Methocarbamol [Robaxin] 1,000 mg PO DAILY 04/12/19 04/12/19 History Omeprazole [PriLOSEC] 20 mg PO AC-BID 04/12/19 04/12/19 History buPROPion HCL [Wellbutrin SR] 150 mg PO DAILY 04/12/19 04/12/19 History hydrALAZINE HCL 25 mg PO DAILY 04/12/19 04/12/19 History traZODone HCL 50 mg PO TID 04/12/19 04/12/19 History Allergies Allergy/AdvReac Type Severity Reaction Status Date / Time atorvastatin [From Lipitor] Allergy Nausea Verified 04/06/18 10:38 pregabalin [From Lyrica] Allergy Swelling Unverified 04/12/19 11:06 tramadol Allergy Nausea & Verified 04/06/18 10:38 Vomiting varenicline [From Chantix] Allergy Nausea & Unverified 04/12/19 11:06 Vomiting Exam Vital Signs Temp Pulse Resp BP Pulse Ox 04/12/19 10:43 98.3 F 71 18 159/89 97 Intake and Output 04/11/19 04/12/19 04/12/19 22:59 06:59 14:59 Other: Weight 87.543 kg Height 5'4", weight 193 pounds, BMI 33.1. This is a well-developed well-nourished white female who is alert and oriented times 3 in no acute distress. HEENT: Within normal limits. NECK: Supple without mass or thyromegaly. CHEST AND LUNGS: Clear to auscultation. HEART: Regular rate and rhythm. BREASTS: Are without mass or discharge. AXILLARY EXAM: Negative for adenopathy. BACK: Negative for CVA tenderness. ABDOMEN: Soft, nontender, without palpable masses. PELVIC EXAM: Normal external genitalia with minimal atrophy. Cervix and vagina appear normal with minimal atrophy. There is no unusual discharge. There is no evidence of prolapse. The uterus is midposition, nongravid size and nontender. There are no palpable adnexal masses or tenderness. RECTAL EXAM: rectovaginal exam is negative for mass or tenderness and is negative for occult blood. EXTREMITIES: Nontender. IMPRESSION: 1. 53-year-old menopausal female status post endometrial ablation with normal gynecologic exam. 2. History of uterine fibroids with the largest measuring 2.9 cm in 2018. PLAN: 1. Pap smear was performed. 2. Self breast awareness was discussed with the patient. 3. Screening mammogram will be done today. 4. Osteoporosis prevention was discussed. I have stressed the importance of adequate calcium, vitamin D and regular exercise. Recommended amounts of calcium and vitamin D were also discussed. 5. I have recommended that she quit smoking for many reasons. 6. She was advised to return in one year for her annual well woman exam.
--- NOTE | 2019-04-14 09:27 | MM ---
Reason for exam: screening (asymptomatic). Last mammogram was performed 1 year ago. History: Patient is postmenopausal. Family history of breast cancer in mother at age 55, breast cancer in paternal cousin, and breast cancer in sister at age 55. Benign MG stereo VAD BX RT of the right breast, March 12, 2017. Physical Findings: A clinical breast exam by your physician is recommended on an annual basis and results should be correlated with mammographic findings. MG Screening Mammo w CAD Bilateral CC and MLO view(s) were taken. Prior study comparison: April 06, 2018, bilateral MG diagnostic mammo w CAD MONSE. March 06, 2017, bilateral MG work up mamm w CAD BILAT. There are scattered fibroglandular densities. Focal asymmetry right upper outer quadrant, stable. No significant changes when compared with prior studies. ASSESSMENT: Benign, BI-RAD 2 RECOMMENDATION: Routine screening mammogram of both breasts in 1 year.
== END ==
LOC: WWCWWP 10:15
PROVIDERS: ATTEND Obstetrics & Gynecology
DX: Z12.31 Encounter for screening mammogram for malignant neoplasm of breast (principal)
CPT/HCPCS: 77067

== ENCOUNTER → 2019-08-18 | Outpatient (CLI) | payer OTHER ==
[2019-08-18 07:36] VITALS: BP 153/89; PULSE 73; RESP 18; TEMP 98
--- NOTE | 2019-08-18 08:37 | P.GSHP ---
History of Present Illness H&P Date: 08/18/19 Chief Complaint: BRCA2 positive/patient wishes prophylactic mastectomy Gem is a 54-year-old white female who presents for discussion regarding BRCA2 positive genetic testing, she was seen in consultation for Dr. Pickett. Patient was seen by Dr. Stockton in June 2019 to discuss possible genetic testing secondary to her family history. The patient's sister had breast cancer at age 55 and due to metastatic disease. She was positive for BRCA2 gene. The patient's mother had breast cancer in her mid 50s and pancreatic cancer at 60, a maternal aunt had ovarian cancer at 50. The patient underwent genetic testing and was positive for the BRCA2 mutation. The patient had a bilateral mammogram performed in March 2019 which was reportedly negative. The patient does not feel any lumps or masses in her breasts. Patient does not use any hormone replacement therapy. Family History: 1. sister of breast cancer at 55 2. mother: breast cancer, kidney cancer, pancreatic cancer 3. paternal cousin: breast cancer 4. maternal aunt: ovarian cancer 5. maternal aunt: uterine cancer Hormonal history: Menarche: 14 , 1 AB, child born at 21, breast fed: no menopause: Uterine ablation at 40 Procedure plus: Less than a year Hormones: Negative Past Surgical History: 1. 2. toe 3. uterine ablation 4. plastic surgery on face 5. tubaligation 6. breast biopsy on the right; stero biopsy: benign Past Medical History: 1. HTN 2. 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 neuropathy Social History: smoke: 1/2 PPD since 16 alcohol: no drugs: Marijuana weekly for back pain - Constitutional Comment: for past year night sweats Constitutional: Reports sweats - EENT Comment: glaucoma, wears glasses Eyes: denies blurred vision, denies pain Ears: deny: decreased hearing, tinnitus Ears, nose, mouth and throat: Denies headache, Denies sore throat - Breasts Breasts: bilateral: as per HPI - Cardiovascular Cardiovascular: Reports high blood pressure - Respiratory Comment: smoker, asthma, COPD - Gastrointestinal Gastrointestinal: Reports constipation - Genitourinary (Female) Genitourinary: Denies dysuria, Denies hematuria - Menstruation Menstruation: Reports amenorrhea - Musculoskeletal Musculoskeletal: Reports shooting arm pain - Integumentary Comment: bruise easily both arms, no bleeding abnormalities on test Integumentary: Denies pruritus, Denies rash - Neurological Comment: 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 Gr and no clotting abnormalities have been noted Hematologic/Lymphatic: Reports easy bruising - Allergic/Immunologic Allergic/Immunologic: Reports seasonal allergies Past Medical History Past Medical History: Asthma, COPD, Hyperlipidemia, Hypertension, Musculoskeletal Disorder Additional Past Medical History / Comment(s): herniated discs in neck; "Spinal Headache from last Epidural". Glaucoma. 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 She did have a history of endometriosis. Uterine fibroids with largest measuring 2.9 cm in 2018. Carrier of the BRCA2 mutation History of Any Multi-Drug Resistant Organisms: None Reported Past Surgical History: Section, Orthopedic Surgery, Tubal Ligation, Uterine Ablation Additional Past Surgical History / Comment(s): RT LITTLE TOE SX. GLASS REMOVED FROM FACE Past Anesthesia/Blood Transfusion Reactions: Previous Problems w/ Anesthesia Additional Past Anesthesia/Blood Transfusion Reaction / Comment(s): TOOK LONGER WAKING UP Past Psychological History: No Psychological Hx Reported Smoking Status: Current every day smoker Past Alcohol Use History: None Reported Additional Past Alcohol Use History / Comment(s): SMOKES 1/2 - 1PPD SINCE AGE 17 Past Drug Use History: Marijuana - Past Family History Father Family Medical History: Coronary Artery Disease (CAD), CVA/TIA Sister(s) Family Medical History: Cancer, Hypertension Additional Family Medical History / Comment(s): breast cancer. Mother Family Medical History: Cancer, Diabetes Mellitus Additional Family Medical History / Comment(s): Pancreatic cancer. She has a cousin who had breast cancer and an intermittent uterine cancer. Another aunt had ovarian cancer. Brother(s) Family Medical History: Myocardial Infarction ([place]) Medications and Allergies Home Medications Medication Instructions Recorded Confirmed Type Albuterol Inhaler [Ventolin Hfa 1 - 2 puff INHALATION Q6HR PRN 11/17/15 08/18/19 History Inhaler] Ibuprofen [Motrin] 800 mg PO Q6HR PRN 11/17/15 08/18/19 History Lisinopril 40 mg PO DAILY 03/09/17 08/18/19 History HYDROcodone/APAP 7.5-325MG [[place] 1 tab PO Q96H PRN 01/01/18 08/18/19 History 7.5-325] Ergocalciferol (Vitamin D2) 50,000 unit PO Q30D 02/16/18 08/18/19 History [Vitamin D2] Gabapentin 800 mg PO BID 04/12/19 08/18/19 History Methocarbamol [Robaxin] 500 mg PO DAILY 04/12/19 08/18/19 History Omeprazole [PriLOSEC] 20 mg PO AC-BID 04/12/19 08/18/19 History buPROPion HCL [Wellbutrin SR] 150 mg PO BID 04/12/19 08/18/19 History hydrALAZINE HCL 25 mg PO TID 04/12/19 08/18/19 History traZODone HCL 150 mg PO HS 04/12/19 08/18/19 History Rosuvastatin Calcium [Crestor] 40 mg PO DAILY 08/18/19 08/18/19 History Allergies Allergy/AdvReac Type Severity Reaction Status Date / Time atorvastatin [From Lipitor] Allergy Nausea Verified 08/18/19 07:18 pregabalin [From Lyrica] Allergy Swelling Unverified 08/18/19 07:18 tramadol Allergy Nausea & Verified 08/18/19 07:18 Vomiting varenicline [From Chantix] Allergy Nausea & Unverified 08/18/19 07:18 Vomiting Surgical - Exam Vital Signs Temp Pulse Resp BP Pulse Ox 98.0 F 73 18 153/89 95 08/18/19 07:28 08/18/19 07:28 08/18/19 07:28 08/18/19 07:28 08/18/19 07:28 BMI 30.9 - General well developed, well nourished, no distress - Eyes normal ocular movement - ENT no hearing loss, no congestion - Neck no masses, trachea midline - Respiratory normal respiratory effort, clear to auscultation - Cardiovascular Rhythm: regular Heart Sounds: normal: S1, S2 - Abdomen Abdomen: soft, non tender, no guarding, no rigid, no rebound - Integumentary tattoos - Neurologic no disoriented, no combative - Musculoskeletal normal gait, normal posture - Psychiatric oriented to time, oriented to person, oriented to place, speech is normal, memory intact breast exam: bra 36C Breasts: Multiple positional exam no dominant masses or nodules of concern, fibrocystic changes Right axilla: No adenopathy of concern Left breast: Multi-positional exam fibrocystic changes no dominant masses or nodules of concern Left axilla: No adenopathy of concern Results Mammogram March 2019 reviewed, BIRADS 2 no lesions which would require biopsy of concern at this time Assessment and Plan Assessment: Impression: 1. Genetic testing results reviewed/ patient BRCA2 positive 2. COPD 3. Hypertension 4. Degenerative disc disease as well as cervical spine 5. Asthma 6. High cholesterol 7. Family history of breast cancer, sister Plan: 1. Results of genetic testing discussed with the patient and her significant other (boyfriend) 2. Risk of development of breast cancer noted to be 45-84% lifetime risk, lifetime risk of ovarian cancer 11-18% 3. Patient was counseled regarding prophylactic bilateral mastectomy with reconstruction 4. Patient requested to stop smoking risks of wound healing discussed related to smoking 5. Medical management of medical conditions 6. Patient with easy bruisability in the lower arms, this is to be discussed with Dr. Pickett Encounter 45 minutes CC: DR. Pickett
== END ==
LOC: WWCWWP 06:53
PROVIDERS: ATTEND Surgery
DX: Z53.9 Procedure and treatment not carried out, unspecified reason (principal)

== ENCOUNTER → 2019-08-18 | Outpatient (CLI) | payer OTHER ==
--- NOTE | 2019-08-18 10:03 | XR ---
EXAMINATION TYPE: XR chest 2V DATE OF EXAM: 08/18/2019 COMPARISON: NONE TECHNIQUE: PA and lateral views submitted. HISTORY: COPD, shortness of breath, asthma FINDINGS: The lungs are clear and there is no pneumothorax, pleural effusion, or focal pneumonia. Mild hyperi nflation of the lungs. Hypertrophic and degenerative change of the spine. No overt failure. IMPRESSION: 1. No acute process.
== END | disposition home or self-care (01) ==
LOC: RADXRMAIN 09:26
PROVIDERS: ATTEND Surgery
DX: J44.9 Chronic obstructive pulmonary disease, unspecified (principal); R06.02 Shortness of breath
CPT/HCPCS: 71046

== ENCOUNTER 2019-10-04 09:34 | Observation (INO) | payer OTHER ==
[~2019-10-04 09:34] MED LIST changes: +HEPARIN SODIUM,PORCINE 5,000 UNIT/ML 1 ML VIAL SQ ONE; -LACTATED RINGERS 1,000 ML IV SCH; +MIDAZOLAM 2 MG/2 ML VIAL IV PRN; +ONDANSETRON 4 MG/2 ML VIAL IVP ONE; +Pre Op ABX Message 1 EACH MISC MISCELLANE ONE; +SCOPOLAMINE 1.5MG/72HR PATCH TRANSDERM ONE; +fentaNYL (PF) 50 MCG/ML 2 ML AMP IV PRN
[2019-10-04] MEDS: LACTATED RINGERS 1,000 ML IV SCH (10:32)
[2019-10-04] MEDS ORDERED: LIDOCAINE 1% (10MG/ML) FOR IV START INTRADERMA ONE (10:32)
[2019-10-04] MEDS ORDERED: DEXAMETHASONE SOD PHOSPHATE 10 MG/ML 1 ML VIAL IV ONE (10:33)
[2019-10-04] MEDS ORDERED: ALBUTEROL INHALER 60 PUFF/8 GM INHALER (BULK) INHALATION ONE (12:07)
[2019-10-04] MEDS ORDERED: PHENYLEPHRINE-0.9% NACL SYG 1 MG/10 ML SYRINGE ONE (12:07)
[2019-10-04] MEDS ORDERED: SUCCINYLCHOLINE CHLORIDE 100 MG/5 ML SYR IV ONE (12:07)
[2019-10-04] MEDS ORDERED: PROPOFOL 10 MG/ML 20 ML VIAL IV ONE (12:07)
[2019-10-04] MEDS ORDERED: HYDROmorphone (PF) 1 MG/ML ONE (12:07)
[2019-10-04] MEDS ORDERED: fentaNYL (PF) 50 MCG/ML 2 ML AMP ONE (12:07)
[2019-10-04] MEDS ORDERED: ROCURONIUM BROMIDE 10 MG/ML 5 ML VIAL IV ONE (12:07)
[2019-10-04] MEDS ORDERED: KETOROLAC 30 MG/ML 1 ML VIAL ONE (12:07)
[2019-10-04] MEDS ORDERED: MIDAZOLAM 2 MG/2 ML VIAL ONE (12:07)
[2019-10-04] MEDS ORDERED: LIDOCAINE 1% INJ 10MG/ML (20 ML MDV) ONE (12:07)
[2019-10-04] MEDS ORDERED: LACTATED RINGERS 1,000 ML IV ONE (13:38)
[2019-10-04] MEDS ORDERED: NALOXONE 0.4 MG/ML 1 ML VIAL IV PRN (14:40)
[2019-10-04] MEDS ORDERED: ONDANSETRON 4 MG/2 ML VIAL IVP PRN (14:40)
--- NOTE | 2019-10-04 14:40 | P.OP ---
Date of Procedure: 10/04/19 Preoperative Diagnosis: BRCA2 + Postoperative Diagnosis: high risk for breast cancer BRCA2 + Procedure(s) Performed: bilateral mastectomies Anesthesia: TOMAS Surgeon: Roxana Garcia Estimated Blood Loss (ml): 50 IV fluids (ml): 1,100 Pathology: other (bilateral breast) Condition: stable Disposition: floor Indications for Procedure: BRCA2+ high risk for breast cancer Operative Findings: dense breast tissue Description of Procedure: Gem is a 54-year-old white female who was tested and noted to be positive for BRCA2 gene. She was increased risk for breast cancer and after counseling has requested a bilateral mastectomy. Risks and benefits of the procedure were discussed with the patient and she wished to proceed. Patient was brought to the operating room and both breasts were prepped and draped in a sterile fashion. The right breast was approached initially. A marker was utilized to christian where the superior and inferior skin flaps would be located. This was done bilaterally. The right breast was approached initially. The superior flap incision was made. Dissection was performed through the skin into the subcutaneous tissue. Dissection between the subcutaneous plane and br east tissue was performed down to the pectoralis major muscle. The superior flap was developed in this fashion. Hemostasis was attained using electrocautery device as well as with the Harmonic scalpel. The inferior flap was then developed in a similar fashion. The breast was removed from the pectoralis major muscle using electrocautery device and harmonic scalpel from medial to lateral. The breast was then marked with a short stitch superior and a long stitch lateral. Attempt #10 BILL drain was placed. The wound was packed and the left side was approached. Superior and inferior skin markings were placed with a purple marking pen. The superior flap was developed. Incision was made through the skin into the subcutaneous tissue. The flap was developed superiorly up to the area of the clavicle and then down to the pectoralis muscle. The inferior flap was then developed to below the inframammary ridge. The breast was taken from medial to lateral off the pectoralis muscle using the electrocautery device as well as the Harmonic scalpel. Laterally dissection was performed to the area of the axilla. After the breast had been removed was irrigated. A BILL drain was placed. BILL drains were secured using nylon suture. The subcutaneous tissue was closed using 3-0 Vicryl suture bilaterally. The skin was closed using 4-0 Monocryl bilaterally. The drains were noted to keep suction. Sterile dressing was applied as well as a binder. The patient tolerated the procedure in stable condition. All instrument and sponge counts were correct at the end of the case.
[2019-10-04] MEDS ORDERED: DEXTROSE 5%-0.45% NACL 1,000 ML IV SCH (14:45)
[2019-10-04] MEDS ORDERED: HYDROmorphone 1 MG/ML 1 ML SYRINGE IVP ONE ×2 (15:05→15:11)
[2019-10-04] MEDS ORDERED: HYDROmorphone 0.5 MG/0.5 ML SYRINGE IVP ONE (15:50)
[2019-10-04] MEDS: HYDROcodone/APAP 5-325MG 1 EACH TAB PO PRN ×2 (18:09→23:41)
[2019-10-04] MEDS: HEPARIN SODIUM,PORCINE 5,000 UNIT/ML 1 ML VIAL SQ SCH (18:16)
[2019-10-04] MEDS: HYDROmorphone 1 MG/ML 1 ML SYRINGE IVP PRN (20:13)
[2019-10-05] MEDS: HEPARIN SODIUM,PORCINE 5,000 UNIT/ML 1 ML VIAL SQ SCH ×2 (01:56→08:37)
[2019-10-05] MEDS: HYDROmorphone 1 MG/ML 1 ML SYRINGE IVP PRN (04:45)
[2019-10-05] MEDS: LACTATED RINGERS 1,000 ML IV SCH (07:23)
[2019-10-05 07:39] LABS: Basophils % (A) 0 %; Eosinophils % (A) 0 %; HCT 34.8 % (34.0-46.0); HGB 11.2 gm/dL (11.4-16.0); Lymphocytes % (A) 13 %; MCH 30.6 pg (25.0-35.0); MCHC 32.3 g/dL (31.0-37.0); MCV 94.7 fL (80.0-100.0); Mean Platelet Volume 7.7; Monocytes # (A) 0.8 k/uL (0-1.0); Monocytes % (A) 6 %; Neutrophils # (A) 11.8 k/uL (1.3-7.7); Neutrophils % (A) 80 %; Platelet Count 309 k/uL (150-450); RBC 3.67 m/uL (3.80-5.40); RDW 13.3 % (11.5-15.5); WBC 14.8 k/uL (3.8-10.6)
[2019-10-05] MEDS: HYDROcodone/APAP 5-325MG 1 EACH TAB PO PRN (08:07)
[2019-10-05 08:34] VITALS: BP 108/56; PULSE 78; RESP 16; TEMP 97.6
--- NOTE | 2019-10-05 08:34 | P.PN ---
Subjective Progress Note Date: 10/05/19 Principal diagnosis: Postoperative day #1 bilateral mastectomies Gem is a 54-year-old white female postop day #1 for bilateral mastectomies performed for BRCA2 positive genotype. Postoperatively the patient is done well with no complaints. She is noted to have a hemoglobin of 11.2, and a white count of 14.8. She has no fever and BILL output is minimal. Objective - Vital Signs Vital signs: Vital Signs Temp 98.0 F 10/05/19 04:00 Pulse 67 10/05/19 04:00 Resp 18 10/05/19 04:00 BP 104/61 10/05/19 04:00 Pulse Ox 93 L 10/05/19 04:00 Intake & Output 10/04/19 10/05/19 10/05/19 18:59 06:59 18:59 Intake Total 1600 Output Total 600 460 Balance 1000 -460 Weight 81.8 kg Intake: IV 1600 Output: Drainage 10 Left Chest 0 Right Chest 10 Urine 550 450 Estimated Blood Loss 50 Other: # Voids 1 2 - Exam BMI 31 - Constitutional General appearance: Present: average body habitus - EENT Eyes: Present: EOMI ENT: Present: hearing grossly normal - Respiratory Respiratory: bilateral: CTA - Cardiovascular Rhythm: regular Heart sounds: normal: S1, S2 - Integumentary Integumentary Comment(s): Bilateral mastectomy incisions clean and dry with no evidence of any erythema or infection JPs in place holding suction with no difficulty BILL on right 10 mL of sero sanguinous fluid which is dark in nature, BILL on left minimal output holding suction with no difficulty No evidence of any hematoma - Psychiatric Psychiatric: Present: A&O x's 3, appropriate affect, intact judgment & insight - Labs CBC & Chem 7: 10/05/19 06:35 Labs: Abnormal Lab Results - Last 24 Hours (Table) 10/05/19 Range/Units 06:35 WBC 14.8 H (3.8-10.6) k/uL RBC 3.67 L (3.80-5.40) m/uL Hgb 11.2 L (11.4-16.0) gm/dL Neutrophils # 11.8 H (1.3-7.7) k/uL Assessment and Plan Assessment: Impression: 1. Postop day #1 bilateral mastectomies 2. No evidence of infection or hematoma Plan: 1. Discharge home if okay with Dr. Pickett 2. Tis patient drain care 3. Follow-up Dr. Swann in 1 week
--- NOTE | 2019-10-05 08:37 | P.DS ---
Providers Date of admission: 10/05/19 01:15 Attending physician: Roxana Garcia Consults: 10/04/19 14:43 Consult Physician Routine Consulting Provider: Mateo Pickett Consult Reason/Comments: medical managment Do you want consulting provider notified?: Yes Primary care physician: Mateo Pickett Hospital Course: Patient is a 54-year-old white female status post bilateral mastectomies for BRCA2 positive johana mcduffie. She is doing well at this time and plan is for discharge home if okay with medicine. Procedures: Bilateral mastectomies on 10-04-19 Patient Condition at Discharge: Good Plan - Discharge Summary Discharge Rx Participant: Yes New Discharge Prescriptions: No Action Ibuprofen [Motrin] 800 mg PO Q6HR PRN PRN Reason: Pain Albuterol Inhaler [Ventolin Hfa Inhaler] 1 - 2 puff INHALATION Q6HR PRN PRN Reason: Shortness Of Breath Lisinopril 40 mg PO QAM HYDROcodone/APAP 7.5-325MG [[place] 7.5-325] 1 tab PO Q96H PRN PRN Reason: Pain Ergocalciferol (Vitamin D2) [Vitamin D2] 50,000 unit PO Q30D traZODone HCL 150 mg PO HS Omeprazole [PriLOSEC] 20 mg PO AC-BID Methocarbamol [Robaxin] 500 mg PO QAM hydrALAZINE HCL 25 mg PO TID Gabapentin 800 mg PO TID buPROPion HCL [Wellbutrin SR] 150 mg PO QAM Rosuvastatin Calcium [Crestor] 40 mg PO QAM DULoxetine HCL [Cymbalta] 30 mg PO HS hydrOXYzine PAMOATE [Vistaril] 25 mg PO BID Discharge Medication List Albuterol Inhaler [Ventolin Hfa Inhaler] 1 - 2 puff INHALATION Q6HR PRN 11/17/15 [History] Ibuprofen [Motrin] 800 mg PO Q6HR PRN 11/17/15 [History] Lisinopril 40 mg PO QAM 03/09/17 [History] HYDROcodone/APAP 7.5-325MG [[place] 7.5-325] 1 tab PO Q96H PRN 01/01/18 [History] Ergocalciferol (Vitamin D2) [Vitamin D2] 50,000 unit PO Q30D 07/03/18 [History] Gabapentin 800 mg PO TID 04/12/19 [History] Methocarbamol [Robaxin] 500 mg PO QAM 04/12/19 [History] Omeprazole [PriLOSEC] 20 mg PO AC-BID 04/12/19 [History] buPROPion HCL [Wellbutrin SR] 150 mg PO QAM 04/12/19 [History] hydrALAZINE HCL 25 mg PO TID 04/12/19 [History] traZODone HCL 150 mg PO HS 04/12/19 [History] Rosuvastatin Calcium [Crestor] 40 mg PO QAM 08/18/19 [History] DULoxetine HCL [Cymbalta] 30 mg PO HS 09/30/19 [History] hydrOXYzine PAMOATE [Vistaril] 25 mg PO BID 09/30/19 [History] Follow up Appointment(s)/Referral(s): Roxana Garcia MD [STAFF PHYSICIAN] - 1 Week Activity/Diet/Wound Care/Special Instructions: teach patient drain care, drain and record BID May shower after 48 hours wear binder at all times unless in shower Discharge Disposition: HOME SELF-CARE
--- NOTE | 2019-10-05 14:57 | CONS ---
CONSULTATION CHIEF COMPLAINT: HISTORY OF PRESENT ILLNESS: This lady is admitted for a bilateral prophylactic mastectomy. She has otherwise been in good health other than being a fairly heavy smoker. REVIEW OF SYSTEMS: She has had no headaches, neurologic problems, change in vision or hearing, chest pain, shortness of breath, cough, hemoptysis, murmurs, rheumatic fever, etc. She does have hypertension. She has had no orthopnea, PND, abdominal pain, nausea, vomiting, hematemesis, melena, hematochezia, colitis, diverticulosis, diverticulitis, hemorrhoids, jaundice, hepatitis cancers, hematuria, frequency, urgency, renal failure, arthralgias, diabetes, etc. PAST MEDICAL HISTORY, FAMILY HISTORY, PERSONAL AND SOCIAL HISTORIES: Otherwise all unremarkable and noncontributory. MEDICINES THAT SHE CANNOT TAKE: Include QVAR, Chantix, Lyrica, amlodipine, chlorthalidone, Lipitor, and Ultram. She is on hydroxyzine 25 mg twice a day, duloxetine 30 mg once a day, lisinopril 40 mg a day, omeprazole 20 mg once a day, methocarbamol 500 mg twice a day, hydralazine 25 mg t.i.d., trazodone 150 mg bedtime, bupropion 150 mg twice a day, Motrin 800 mg q.i.d. p.r.n., Symbicort 80-4.5 two puffs twice a day, Neurontin 800 mg t.i.d., albuterol updrafts q.i.d. and p.r.n., rosuvastatin 40 mg once a day, Vicodin 7.5 q.4h p.r.n., and vitamin D 50,000 units a month. The remainder of her history is unremarkable except for her current smoking history. She has. PHYSICAL EXAMINATION: Blood pressure 134/86, pulse of 82, respirations 14. She is afebrile. In general, she appeared to be well-developed, well-nourished, in no acute distress. Skin color is normal, skin is warm, dry. Lymph nodes are not enlarged. Head, ears, eyes, nose, mouth, and throat are normal. Neck veins are not distended. Thyroid is not enlarged. The chest is clear. The cardiac exam is normal. The abdomen is soft, nontender. Extremities are normal. IMPRESSION: 1. mutation. 2. Chronic obstructive pulmonary disease. 3. Hypertension. RECOMMENDATIONS: None at this time. She is improved. MMODL / IJN: [id number] /
--- NOTE | 2019-10-05 19:45 | PN ---
PROGRESS NOTE DATE OF SERVICE: 10/05/2019 CHIEF COMPLAINT: BRCA 1 HISTORY OF PRESENT ILLNESS: This lady is doing well postoperatively and expects to go home today. REVIEW OF SYSTEMS: She has had no nausea, chest pain, fever, chills, etc. PHYSICAL EXAMINATION: Chest is clear. Cardiac exam is normal. Abdomen is soft, nontender. IMPRESSION: Status post prophylactic bilateral mastectomy. PLAN: Home today. MMODL / IJN: [id number] /
== END 2019-10-05 09:00 | disposition home or self-care (01) ==
LOC: OR 09:34 → 6PED 15:05 → 4FBP 15:41 → OR 23:58 → UNDOADMIN 10-05 01:15 → INTOOBSV 10-05 01:15 → 4FBP 10-05 01:15 → UNDODISIN 10-05 09:00
PROVIDERS: ADMIT Surgery; ATTEND Surgery
PROC: 0HTV0ZZ Resection of Bilateral Breast, Open Approach (ICD-10-PCS; principal; 2019-10-04 11:20)
DX: Z40.01 Encounter for prophylactic removal of breast (principal); J44.9 Chronic obstructive pulmonary disease, unspecified; M50.20 Other cervical disc displacement, unspecified cervical region; I10 Essential (primary) hypertension; E78.5 Hyperlipidemia, unspecified; M19.90 Unspecified osteoarthritis, unspecified site; Z15.01 Genetic susceptibility to malignant neoplasm of breast; F17.210 Nicotine dependence, cigarettes, uncomplicated; F12.90 Cannabis use, unspecified, uncomplicated; Z79.891 Long term (current) use of opiate analgesic; Z79.51 Long term (current) use of inhaled steroids; Z79.899 Other long term (current) drug therapy; Z88.8 Allergy status to other drugs, medicaments and biological substances; Z80.3 Family history of malignant neoplasm of breast; Z80.41 Family history of malignant neoplasm of ovary; Z80.0 Family history of malignant neoplasm of digestive organs; Z80.51 Family history of malignant neoplasm of kidney
CPT/HCPCS: 19303; 85025; 88307; G0378 ×2; J2250; J1644 ×2; J1100; J2405; J2001; J3010; J1885; J1170 ×3; J2370; J0330; J2704

== ENCOUNTER → 2019-10-18 | Outpatient (CLI) | payer OTHER ==
--- NOTE | 2019-10-18 15:40 | P.PN ---
Progress Note - Text Progress Note Date: 10/18/19 Patient was seen to evaluate recurrent possible seroma left mastectomy site. There is again for present and this will be aspirated. Patient understands risks and benefits and wishes to proceed.
--- NOTE | 2019-10-18 15:42 | P.PCN ---
Date of Procedure: 10/18/19 Preoperative Diagnosis: Seroma left chest wall Postoperative Diagnosis: Same Procedure(s) Performed: Aspiration seroma Surgeon: Roxana Garcia Description of Procedure: Preoperative concern in the left chest was prepped using alcohol. Recommendation A 60 mL syringe was inserted into the area of fluctuance. 80 mL of yellow fluid was obtained with resolution of the seroma. Patient tolerated procedure in stable condition.
== END ==
LOC: WWCWWP 13:52
PROVIDERS: ATTEND Surgery
DX: Z53.9 Procedure and treatment not carried out, unspecified reason (principal)

== ENCOUNTER → 2019-10-21 | Outpatient (CLI) | payer OTHER ==
[2019-10-21 10:50] VITALS: BP 118/74; PULSE 77; RESP 18; TEMP 98
--- NOTE | 2019-10-21 11:33 | P.PN ---
Progress Note - Text Progress Note Date: 10/21/19 Gem is status post bilateral mastectomy in 10/04/2019. Postprocedure the patient developed a seroma in the left chest wall site which has been aspirated several times. She comes in today for evaluation of this as well as possible removal of the drain on the right mastectomy site. A right mastectomy as her putting out approximately 20-25 mL/day for the past several days. She has some mild fullness in the left chest wall mastectomy site. She is not complaining of any fever or chills. Physical exam: 1. Right chest wall incision healing without any evidence of infection 2. Right BILL drain ready for removal 3. Mild seroma formation in the left chest wall recommend aspiration Plan: 1. DC BILL drain 2. Aspiration seroma left chest wall 3. Follow-up in one and half weeks CC: Dr. Pickett
--- NOTE | 2019-10-21 11:35 | P.PCN ---
Date of Procedure: 10/21/19 Preoperative Diagnosis: Seroma left chest wall at mastectomy site Postoperative Diagnosis: Same Procedure(s) Performed: Aspiration seroma Surgeon: Roxana Garcia Pathology: none sent Condition: stable Disposition: same day Indications for Procedure: Seroma left chest wall Operative Findings: 62 mL of clear straw-colored flu Description of Procedure: The left chest was prepped using alcohol. An 18-gauge needle on a 60 mL syringe was inserted into the area of fluctuant/fluid. 62 mL of straw-colored fluid was withdrawn. Complete resolution of the seroma appeared to have occurred. The patient tolerated the procedure in stable condition. The patient will follow il eder Swann in a week and a half. If she has any questions she will follow sooner.
== END ==
LOC: WWCWWP 10:41
PROVIDERS: ATTEND Surgery
DX: Z53.9 Procedure and treatment not carried out, unspecified reason (principal)

== ENCOUNTER → 2020-01-20 | Outpatient (CLI) | payer OTHER ==
[2020-01-20 09:42] VITALS: BP 131/75; PULSE 81; RESP 18; TEMP 98.6
--- NOTE | 2020-01-20 09:56 | P.PN ---
Subjective Progress Note Date: 01/20/20 Principal diagnosis: Intermittent chest wall tenderness Gem is a 54-year-old white female status post bilateral mastectomy in September. Postprocedure she developed a seroma in the left chest wall which was aspirated several times. She additionally had some necrosis of the medial aspect of the incisions which is now completely healed. Today she complains of some pain in the medial aspect of the right mastectomy incision. She states it is worse when she bends down. It was intermittent throughout the day. She states that she has used Motrin with minimal help. She has not used any compresses to the area. It feels better when she wears a binder in this area. Objective - Vital Signs Vital signs: Vital Signs Temp 98.6 F 01/20/20 09:38 Pulse 81 01/20/20 09:38 Resp 18 01/20/20 09:38 BP 131/75 01/20/20 09:38 Pulse Ox 97 01/20/20 09:38 Intake & Output 01/19/20 01/20/20 01/20/20 18:59 06:59 18:59 Weight 81.647 kg - Exam BMI 30.9 - Constitutional General appearance: Present: average body habitus - EENT Eyes: Present: EOMI ENT: Present: hearing grossly normal - Neck Neck: Present: normal ROM - Respiratory Respiratory: bilateral: CTA - Cardiovascular Rhythm: regular Heart sounds: normal: S1, S2 - Integumentary Integumentary Comment(s): Bilateral mastectomy incisions clean and dry No evidence of infection Scar tissue present bilaterally which is well-healed Integumentary: Present: normal turgor - Musculoskeletal Musculoskeletal: Present: gait normal - Psychiatric Psychiatric: Present: A&O x's 3, appropriate affect, intact judgment & insight Assessment and Plan Assessment: Impression: 1. This is status post bilateral mastectomy for BRCA2 positive Plan: 1. The platelet with Dr. Mao to follow ovarian evaluation patient is BRCA2 positive 2. Follow up here in 3 months 3. Conservative management of chest wall discomfort CC: Dr. Pickett encounter 15 minutes > 50% of time in planning and counselling
== END | disposition home or self-care (01) ==
LOC: WWCWWP 09:10
PROVIDERS: ATTEND Surgery
DX: Z53.9 Procedure and treatment not carried out, unspecified reason (principal)

== ENCOUNTER → 2020-02-08 | Outpatient (CLI) | payer OTHER ==
[2020-02-08 09:24] VITALS: BP 115/79; PULSE 83; RESP 20; TEMP 98.3
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
== END | disposition home or self-care (01) ==
LOC: WWCWWP 09:06
PROVIDERS: ATTEND Obstetrics & Gynecology
DX: Z53.9 Procedure and treatment not carried out, unspecified reason (principal)

== ENCOUNTER → 2020-02-17 | Outpatient (CLI) | payer OTHER ==
--- NOTE | 2020-02-17 15:44 | US ---
EXAMINATION TYPE: US pelvis complete transvag DATE OF EXAM: 02/17/2020 COMPARISON: US dated 04/06/2018 CLINICAL HISTORY: D25.9 UTERINE LEIOMYOMA. BRCAZ+ TECHNIQUE: Transvaginal (TV) and Transabdominal (TA) . Transabdominal sonographic images of the pel vis were acquired. Transvaginal sonographic images were medically necessary to better assess the fol lowing anatomy: uterus and ovaries. Date of LMP: Ablation years ago EXAM MEASUREMENTS: Uterus: 6.2 x 3.6 x 5.2 cm Endometrial Stripe: 0.7 cm Right Ovary: 2.1 x 1.5 x 1.7 cm Left Ovary: 2.1 x 1.5 x 1.3 cm 1. Uterus: Anteverted very heterogeneous with small posterior fibroid measuring 1.0 x 1.0 x 1.3 cm . Difficult to distinguish endo form surrounding heterogenous tissue 2. Endometrium: measures 0.7 cm 3. Right Ovary: wnl 4. Left Ovary: wnl 5. Bilateral Adnexa: wnl 6. Posterior cul-de-sac: no free fluid IMPRESSION: Fibroid uterus
--- NOTE | 2020-02-21 15:21 | P.PN ---
Progress Note - Text Progress Note Date: 02/21/20 OUTPATIENT FOLLOW-UP NOTE TEST(S)/RESULTS: Pelvic ultrasound on 02/17/2020 showed normal ovaries bilaterally and a 1.3 cm posterior uterine fibroid. METHOD OF NOTIFICATION: Patient was notified by phone. PATIENT COMMENTS: DIAGNOSIS: Small uterine fibroid normal appearing ovaries by ultrasound. DISCUSSION: Because of her positive BRCA testing, we attempted to make a referral to Dr. Redmond for BSO and possible hysterectomy. We were notified that his office does not accept the patient's insurance and we will try other local [employer] physicians. PLAN: Referral for prophylactic BSO as above.
== END | disposition home or self-care (01) ==
LOC: RADUSWWP 15:03
PROVIDERS: ATTEND Obstetrics & Gynecology
DX: Z15.01 Genetic susceptibility to malignant neoplasm of breast (principal); D25.9 Leiomyoma of uterus, unspecified
CPT/HCPCS: 76830; 76856

== ENCOUNTER → 2020-04-12 | Outpatient (CLI) | payer OTHER ==
[2020-04-12 13:38] LABS: Basophils # (A) 0.1 k/uL (0-0.2); Basophils % (A) 1 %; Calcium 9.6 mg/dL (8.4-10.2); Eosinophils # (A) 0.2 k/uL (0-0.7); Eosinophils % (A) 2 %; HCT 39.1 % (34.0-46.0); HGB 12.6 gm/dL (11.4-16.0); Lymphocytes # (A) 1.9 k/uL (1.0-4.8); Lymphocytes % (A) 27 %; MCH 29.6 pg (25.0-35.0); MCHC 32.2 g/dL (31.0-37.0); MCV 91.9 fL (80.0-100.0); Mean Platelet Volume 7.5; Monocytes # (A) 0.5 k/uL (0-1.0); Monocytes % (A) 6 %; Neutrophils # (A) 4.5 k/uL (1.3-7.7); Neutrophils % (A) 62 %; Platelet Count 301 k/uL (150-450); Potassium 4.9 mmol/L (3.5-5.1); RBC 4.26 m/uL (3.80-5.40); WBC 7.2 k/uL (3.8-10.6)
== END | disposition home or self-care (01) ==
LOC: LABWHC1 11:36
PROVIDERS: ATTEND Obstetrics & Gynecology
DX: Z01.818 Encounter for other preprocedural examination (principal)
CPT/HCPCS: 36415; 80048; 85025

== ENCOUNTER 2020-04-19 07:21 | Day surgery (SDC) | payer OTHER ==
[2020-04-12 14:20] VITALS: BMI 32.5
--- NOTE | 2020-04-18 17:25 | P.HPOB ---
History of Present Illness H&P Date: 04/18/20 Chief Complaint: History of breast cancer with BRCA positive Nolan a 52-year-old female with breast cancer BRCA2 positive and she is scheduled for a bilateral robotic-assisted salpingo-oophorectomy. Risks, benefits, alternatives were reviewed with the patient in detail and all questions were answered for her prior to proceeding to the operating room. As she has no significant over risk for uterine cancer based on this diagnosis, she is only undergoing a salpingo-oophorectomy rather than a hysterectomy. This should shorten the surgery and her recovery time. She is aware of risks including bleeding and infection, damage to bladder or bowel, nerve injuries, vascular injuries, ureteral injuries. Her past has been normal and she did have a negative human papilloma virus as well. 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 Glaucoma. 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 She did have a history of endometriosis. Uterine fibroids with largest measuring 2.9 cm in 2018. Carrier of the BRCA2 mutation History of Any Multi-Drug Resistant Organisms: None Reported Past Surgical History: Breast Surgery, Section, Orthopedic Surgery, Tubal Ligation, Uterine Ablation Additional Past Surgical History / Comment(s): RT LITTLE TOE SX, plastic sx for GLASS REMOVED FROM FACE, rt breast bx, epidural for pain, laser sx pilar eyes for glaucoma. Bilateral prophylactic mastectomies 09/2019,D&C Past Anesthesia/Blood Transfusion Reactions: Previous Problems w/ Anesthesia Additional Past Anesthesia/Blood Transfusion Reaction / Comment(s): TOOK LONGER WAKING UP, states had spinal headache from epidural for pain. states woke up during one sx Smoking Status: Current every day smoker - Past Family History Sister(s) Family Medical History: Cancer, Hypertension Additional Family Medical History / Comment(s): breast cancer. Mother Family Medical History: Cancer, Diabetes Mellitus Additional Family Medical History / Comment(s): Pancreatic cancer. She has a cousin who had breast cancer and uterine cancer. Another aunt had ovarian cancer. Brother(s) Family Medical History: Myocardial Infarction ([place]) Father Family Medical History: CVA/TIA Medications and Allergies Home Medications Medication Instructions Recorded Confirmed Type Albuterol Inhaler (Mhu) [Ventolin 1 - 2 puff INHALATION Q6HR PRN 11/17/15 04/12/20 History Hfa Inhaler] Ibuprofen [Motrin] 800 mg PO Q6HR PRN 11/17/15 04/12/20 History Ergocalciferol (Vitamin D2) 50,000 unit PO Q30D 02/16/18 04/12/20 History [Vitamin D2] Gabapentin 800 mg PO TID 04/12/19 04/12/20 History Omeprazole [PriLOSEC] 20 mg PO AC-BID PRN 04/12/19 04/12/20 History buPROPion HCL [Wellbutrin SR] 150 mg PO QAM 04/12/19 04/12/20 History hydrALAZINE HCL 25 mg PO TID 04/12/19 04/12/20 History methocarbamoL [Robaxin] 500 mg PO QAM 04/12/19 04/12/20 History traZODone HCL 150 mg PO HS 04/12/19 04/12/20 History Rosuvastatin Calcium [Crestor] 40 mg PO QAM 08/18/19 04/12/20 History Ascorbic Acid [Vitamin C] 1,000 mg PO DAILY 02/08/20 04/12/20 History L.acidoph,Paracasei, B.lactis 1 each PO DAILY 02/08/20 04/12/20 History [Probiotic] Latanoprost Ophth [Xalatan 0.005%] 1 drops BOTH EYES HS 04/12/20 04/12/20 History Allergies Allergy/AdvReac Type Severity Reaction Status Date / Time atorvastatin [From Lipitor] Allergy Nausea Verified 04/12/20 14:04 beclomethasone [From Qvar] Allergy Sore Throat Unverified 04/12/20 14:04 chlorthalidone Allergy Nausea & Verified 04/12/20 14:04 Vomiting pregabalin [From Lyrica] Allergy Swelling Unverified 04/12/20 14:04 tramadol Allergy Nausea & Verified 04/12/20 14:04 Vomiting varenicline [From Chantix] Allergy Nausea & Unverified 04/12/20 14:04 Vomiting Exam Osteopathic Statement: *. No significant issues noted on an osteopathic structural exam other than those noted in the History and Physical/Consult. - OBG Physical Exam Breast: both: normal (no masses) Abdomen: bowel sounds normal, no diffuse tenderness, no bruit present, no guarding noted, no hepatomegaly, no splenomegaly, no mass Vulva: both: normal Vagina: normal moisture, no discharge Cervix: no lesion, no discharge Uterus: normal size, normal contour Adnexa: both: normal Anus/Rectum: normal perianal skin, no rectal mass, no hemorrhoids, heme negative
[~2020-04-19 07:21] MED LIST changes: -HEPARIN SODIUM,PORCINE 5,000 UNIT/ML 1 ML VIAL SQ ONE; +HYDROmorphone 0.5 MG/0.5 ML SYRINGE IVP PRN; +LACTATED RINGERS 1,000 ML IV SCH; -MIDAZOLAM 2 MG/2 ML VIAL IV PRN; -Pre Op ABX Message 1 EACH MISC MISCELLANE ONE; -SCOPOLAMINE 1.5MG/72HR PATCH TRANSDERM ONE; -fentaNYL (PF) 50 MCG/ML 2 ML AMP IV PRN
[2020-04-19] MEDS ORDERED: LIDOCAINE 1% (10MG/ML) FOR IV START INTRADERMA ONE (08:07)
[2020-04-19] MEDS ORDERED: MIDAZOLAM 2 MG/2 ML VIAL ONE (09:11)
[2020-04-19] MEDS ORDERED: ROCURONIUM 10 MG/ML (5 ML VIAL) IV ONE (09:11)
[2020-04-19] MEDS ORDERED: LIDOCAINE 1% INJ 10MG/ML (20 ML MDV) ONE (09:11)
[2020-04-19] MEDS ORDERED: KETOROLAC 15 MG/ML 1 ML VIAL ONE (09:11)
[2020-04-19] MEDS ORDERED: METOPROLOL TARTRATE 5 MG/5 ML VIAL IVP ONE (09:11)
[2020-04-19] MEDS ORDERED: NEOSTIGMINE 1 MG/ML 10 ML VIAL ONE (09:11)
[2020-04-19] MEDS ORDERED: PROPOFOL 10 MG/ML 20 ML VIAL IV ONE (09:11)
[2020-04-19] MEDS ORDERED: GLYCOPYRROLATE 0.2 MG/ML 2 ML VIAL ONE (09:11)
[2020-04-19] MEDS ORDERED: fentaNYL (PF) 50 MCG/ML 2 ML AMP ONE (09:11)
[2020-04-19] MEDS ORDERED: SUCCINYLCHOLINE CHLORIDE 100 MG/5 ML SYR IV ONE (09:11)
[2020-04-19] MEDS ORDERED: BUPIVACAINE (PF) 0.25% 30 ML VIAL SQ ONE (09:46)
[2020-04-19] MEDS ORDERED: LACTATED RINGERS 1,000 ML IV ONE (10:04)
[2020-04-19] MEDS ORDERED: ONDANSETRON 4 MG/2 ML VIAL IVP PRN (10:05)
[2020-04-19] MEDS ORDERED: KETOROLAC 15 MG/ML 1 ML VIAL IVP PRN (10:05)
--- NOTE | 2020-04-19 10:12 | P.OP ---
Date of Procedure: 04/19/20 Preoperative Diagnosis: BRCA2 need for bilateral oophorectomy Postoperative Diagnosis: Same with adhesions of the appendices epiploic a to the left adnexa Procedure(s) Performed: Robotic-assisted laparoscopic bilateral's salpingo-oophorectomy with lysis of adhesions Anesthesia: TOMAS Surgeon: Benito Villareal Crutching Contractor #1: Manisha Upton Estimated Blood Loss (ml): 5 Pathology: other (Bilateral tubes and ovaries) Condition: stable Disposition: floor Operative Findings: Incidental finding of fibroid uterus. As well as adhesions to the bladder to the anterior abdominal wall but she was having no complaints or issues therefore this was left alone Description of Procedure: Patient was taken to the operating suite where a general anesthetic was found be adequate. She was prepped and draped in normal sterile fashion and placed in dorsal lithotomy position. Initially a speculum was inserted in the vagina and into lip cervix identified and grasped with a single-tooth tenaculum. Uterus then sounded to 8 cm and a manipulator was inserted following dilation. Once this was, fully catheter was placed and other instruments were removed from the vagina. Gloves were then changed and attention was turned to the abdominal port ion procedure where 2 mL a course of Marcaine was injected supraumbilically. Through this injected anesthetic a 8 mm skin incision was made and through this incision under direct visualization with an optical trocar and sleeve the camera was inserted. Once peritoneal placement was assured gas was allowed to fully insufflate the abdomen and patient was then placed in a very steep Trendelenburg position. 2 lateral ports were then placed along the same line as the umbilicus approximately 10 or 12 cm lateral to the umbilicus. These were inserted under direct visualization. Fourth port and sleeve was then inserted between the left lateral and medial port and then the medial port was exchanged for a robotic port and the robot was brought in and docked. Once fully docked a scissor was placed in the one arm and a [place] in the 2 arm. At this point I broke scrub and went to the console. Observations pelvis were noted there was adhesions of the appendices epiploicae to the left adnexa which were lysed free once ovary was freed identification of the infundibular pelvic was performed this ligament was then cauterized and transected and moving laterally through the mesosalpinx tissues were cauterized and transected all the way to the level of the utero- ovarian ligament was at which was then cauterized transected and the ovary was placed in the anterior cul-de-sac to wait removal. Tensions 10 then turned to the right fallopian tube which again was elevated and then the infundibular pelvic ligament was identified cauterized transected and removed medially through the mesosalpinx cauterizing and transecting to the ovarian ligament which was again cauterized and transected. Once this was completed this or was placed in a laparoscopic bag and removed second left scopic bag was then used to remove the left ovary hemostasis was then obtained. There was one small bleeder on the appendix up [place] from where was dissected free was cauterized. Once this was completed pelvis was irrigated no bleeding is noted on the pedicles therefore instruments removed. Gas allowed to expel from the abdomen and 5 deep breaths were provided. Incisions were then close of James with 4-0 Vicryl and the remaining local anesthetic was injected around these incisions. Sponge, lap, needle counts were all correct 2. Patient was then taken to the recovery room in stable and satisfactory condition.
[2020-04-19] MEDS: HYDROcodone/APAP 7.5-325MG 1 EACH TAB PO PRN ×2 (11:46→17:22)
[2020-04-19 14:50] VITALS: RESP 16
[2020-04-19 15:03] VITALS: BP 122/76; PULSE 72; TEMP 98
--- NOTE | 2020-04-19 16:59 | P.DS ---
Providers Expected date of discharge: 04/19/20 Attending physician: Benito Villareal Primary care physician: Mateo Moraleshven [facility] Course: Nolan doing very well postop day 0. She is ambulating and voiding. She is tolerating a diet and she wishes to be discharged home. Her incisions are intact. She did have some spotting latex afternoon but this is most likely from the tenaculum or from the uterine manipulator. Urine was otherwise clear prior to that. Her vital signs are stable and afebrile. She relates that her pain is very well tolerated with her and said and [place]. She is tolerating a [place] well. Heart regular, lungs clear her extremities without pain. She has ambulated well. We'll discharge her to home with instructions follow up with me in 1 week. She is aware to have no heavy lifting, limited stairs and driving and pelvic rest. If she has any high temperatures, heavy bleeding, severe pain or other signs or symptoms or issues she is to notify our office or report to the emergency room. Patient Condition at Discharge: Good Plan - Discharge Summary Discharge Rx Participant: Yes New Discharge Prescriptions: New HYDROcodone/APAP 5-325MG [[place] 5-325] 1 tab PO Q4HR PRN #30 tab PRN Reason: Pain No Action Ibuprofen [Motrin] 800 mg PO Q6HR PRN PRN Reason: Pain Albuterol Inhaler (Mhu) [Ventolin Hfa Inhaler] 1 - 2 puff INHALATION Q6HR PRN PRN Reason: Shortness Of Breath Ergocalciferol (Vitamin D2) [Vitamin D2] 50,000 unit PO Q30D traZODone HCL 150 mg PO HS Omeprazole [PriLOSEC] 20 mg PO AC-BID PRN PRN Reason: gerd methocarbamoL [Robaxin] 500 mg PO QAM hydrALAZINE HCL 25 mg PO TID Gabapentin 800 mg PO TID buPROPion HCL [Wellbutrin SR] 150 mg PO QAM Rosuvastatin Calcium [Crestor] 40 mg PO QAM Ascorbic Acid [Vitamin C] 1,000 mg PO DAILY L.acidoph,Paracasei, B.lactis [Probiotic] 1 each PO DAILY Latanoprost Ophth [Xalatan 0.005%] 1 drops BOTH EYES HS Discharge Medication List Albuterol Inhaler (Mhu) [Ventolin Hfa Inhaler] 1 - 2 puff INHALATION Q6HR PRN 11/17/15 [History] Ibuprofen [Motrin] 800 mg PO Q6HR PRN 11/17/15 [History] Ergocalciferol (Vitamin D2) [Vitamin D2] 50,000 unit PO Q30D 02/16/18 [History] Gabapentin 800 mg PO TID 04/12/19 [History] Omeprazole [PriLOSEC] 20 mg PO AC-BID PRN 04/12/19 [History] buPROPion HCL [Wellbutrin SR] 150 mg PO QAM 04/12/19 [History] hydrALAZINE HCL 25 mg PO TID 04/12/19 [History] methocarbamoL [Robaxin] 500 mg PO QAM 04/12/19 [History] traZODone HCL 150 mg PO HS 04/12/19 [History] Rosuvastatin Calcium [Crestor] 40 mg PO QAM 08/18/19 [History] Ascorbic Acid [Vitamin C] 1,000 mg PO DAILY 02/08/20 [History] L.acidoph,Paracasei, B.lactis [Probiotic] 1 each PO DAILY 02/08/20 [History] Latanoprost Ophth [Xalatan 0.005%] 1 drops BOTH EYES HS 04/12/20 [History] HYDROcodone/APAP 5-325MG [[place] 5-325] 1 tab PO Q4HR PRN #30 tab 04/19/20 [Rx] Follow up Appointment(s)/Referral(s): Benito Villareal DO [Doctor of Osteopathic Medicine] - 1 Week Mateo Pickett MD [Primary Care Provider] - 1 Week Patient Instructions/Handouts: How to Stop Smoking (GEN), Cigarette Smoking and Your Health (GEN) Activity/Diet/Wound Care/Special Instructions: No heavy lifting, no driving, no intercourse, nothing in the vagina. No tub baths, no pools, no hot tubs. May Shower. Removed the large bandaids tomorrow, leave the steri strips in place, they will fall off on their own. Call Dr Villareal if you develop a fever or chills, increase in pain, bleeding or clots from your vagina, purulent drainage from your incisions or if you have any other questions or concerns. Discharge Disposition: HOME SELF-CARE
--- NOTE | 2020-05-29 10:23 | P.PN ---
Progress Note - Text Progress Note Date: 05/29/20 The patient is status post laparoscopic BSO on 04/19/2020 and this was done by Dr. Villareal. She has called and states she has been experiencing some pain and drainage from her incisions as well as some back discomfort. She was instructed to contact her Dr. Villareal for postop follow-up and to address her postoperative problems. If she is unable to be seen by him in a timely fashion, she was instructed to go to the emergency room if significant problems.
== END 2020-04-19 17:30 | disposition home or self-care (01) ==
LOC: OR 07:21 → 6PED 10:17 → OR 17:30
PROVIDERS: ATTEND Obstetrics & Gynecology
DX: N83.292 Other ovarian cyst, left side (principal); N83.291 Other ovarian cyst, right side; N73.6 Female pelvic peritoneal adhesions (postinfective); Z15.01 Genetic susceptibility to malignant neoplasm of breast; Z80.3 Family history of malignant neoplasm of breast; D25.9 Leiomyoma of uterus, unspecified; I10 Essential (primary) hypertension; J45.909 Unspecified asthma, uncomplicated; G62.9 Polyneuropathy, unspecified; E78.5 Hyperlipidemia, unspecified; F17.200 Nicotine dependence, unspecified, uncomplicated; F41.9 Anxiety disorder, unspecified; F32.9 Major depressive disorder, single episode, unspecified; H40.9 Unspecified glaucoma; Z88.5 Allergy status to narcotic agent; Z88.8 Allergy status to other drugs, medicaments and biological substances; Z79.899 Other long term (current) drug therapy; Z98.51 Tubal ligation status; Z90.13 Acquired absence of bilateral breasts and nipples; Z82.49 Family history of ischemic heart disease and other diseases of the circulatory system; Z83.3 Family history of diabetes mellitus; Z80.0 Family history of malignant neoplasm of digestive organs; Z80.49 Family history of malignant neoplasm of other genital organs; Z80.41 Family history of malignant neoplasm of ovary
CPT/HCPCS: 93005; 88305; 58661; J2250; J2710; J0690; J2405; J2001; J3010; J1885; J0330; J2704; 86850; 86900; 86901

== ENCOUNTER 2020-05-30 17:16 | Emergency (ER) | payer OTHER ==
[2020-05-30 17:43] VITALS: RESP 18; TEMP 98.2
[2020-05-30 18:30] LABS: Basophils # (A) 0.1 k/uL (0-0.2); Basophils % (A) 1 %; Eosinophils # (A) 0.2 k/uL (0-0.7); Eosinophils % (A) 2 %; HCT 40.4 % (34.0-46.0); Lymphocytes # (A) 1.9 k/uL (1.0-4.8); Lymphocytes % (A) 17 %; MCH 30.8 pg (25.0-35.0); MCHC 32.3 g/dL (31.0-37.0); MCV 95.5 fL (80.0-100.0); Mean Platelet Volume 7.2; Monocytes # (A) 0.5 k/uL (0-1.0); Monocytes % (A) 5 %; Neutrophils # (A) 8.2 k/uL (1.3-7.7); Neutrophils % (A) 75 %; Platelet Count 322 k/uL (150-450); RBC 4.23 m/uL (3.80-5.40); RDW 14.2 % (11.5-15.5)
[2020-05-30 18:45] LABS: Albumin 4.9 g/dL (3.5-5.0); Potassium 5.1 mmol/L (3.5-5.1); Total Bilirubin 0.4 mg/dL (0.2-1.3); Total Protein 7.4 g/dL (6.3-8.2)
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
--- NOTE | 2020-05-30 18:48 | CT ---
EXAMINATION TYPE: CT abdomen pelvis w con DATE OF EXAM: 05/30/2020 COMPARISON: None HISTORY: abdominal pain 1 month post-op CT DLP: 1264.7 mGycm Automated exposure control for dose reduction was used. CONTRAST: Performed with IV Contrast, patient injected with 100 mL of Isovue 300. Lung bases are clear. There is no pleural effusion. Heart size is normal. There is no pericardial eff usion. There are multiple small hypodensities throughout the liver consistent with multiple simple cysts. Th emily measure up to 2 cm. The bile ducts are not dilated. Gallbladder appears normal. Spleen is intact. The stomach is intact. There is no evidence of pancreatic mass. There is no adrenal mass. Kidneys sh ow satisfactory contrast opacification. There is no hydronephrosis. Delayed images show normal renal excretion. There is no retroperitoneal adenopathy. Bladder distends smoothly. There is no inguinal hernia. Uterus appears normal. There is no evidence o f a pelvic mass. There is no free fluid in the pelvis. There are a few sigmoid diverticula. There is no sign of diverticulitis. Appendix is not definitely seen. There is no sign of thickened appendix. T here is small 2 cm umbilical hernia that contains fat. Lumbar vertebra have normal alignment. There is spondylotic changes in the lumbar spine. There is vac uum disc at L5-S1. There is no compression fracture. The bony pelvis is intact. Hip joints are intact . There is atherosclerotic vascular calcification in the abdominal aorta and the branches. IMPRESSION: Numerous simple hepatic cysts. No dilated ducts. Appendix not seen. No sign of acute abdomen and pelvis. Atherosclerotic vascular disease.
[2020-05-30 19:23] VITALS: BP 152/88; PULSE 91
== END 2020-05-30 19:23 | disposition home or self-care (01) ==
LOC: EC 17:16
DX: R10.9 Unspecified abdominal pain (principal); D72.829 Elevated white blood cell count, unspecified; J45.909 Unspecified asthma, uncomplicated; E78.5 Hyperlipidemia, unspecified; I10 Essential (primary) hypertension; G62.9 Polyneuropathy, unspecified; F32.9 Major depressive disorder, single episode, unspecified; F41.9 Anxiety disorder, unspecified; F17.200 Nicotine dependence, unspecified, uncomplicated; H40.9 Unspecified glaucoma; Z79.51 Long term (current) use of inhaled steroids; Z79.899 Other long term (current) drug therapy; Z88.8 Allergy status to other drugs, medicaments and biological substances; Z88.5 Allergy status to narcotic agent; Z98.890 Other specified postprocedural states
CPT/HCPCS: 36415; 80053; 85025; 74177; 99284; Q9967

== ENCOUNTER → 2020-06-07 | Outpatient (CLI) | payer OTHER ==
[2020-06-07 14:02] VITALS: BP 149/89; PULSE 88; RESP 18; TEMP 98
--- NOTE | 2020-06-07 14:50 | P.PN ---
Subjective Progress Note Date: 06/07/20 Principal diagnosis: BRCA2 +/surveillance BRACA2 positive Gem is a 54-year-old white female who presented for discussion regarding BRCA2 positive genetic testing, she was seen in consultation for Dr. Pickett. Patient was seen by Dr. Stockton in June 2019 to discuss possible genetic testing secondary to her family history. The patient's sister had breast cancer at age 55 and due to metastatic disease. She was positive for BRCA2 gene. The patient's mother had breast cancer in her mid 50s and pancreatic cancer at 60, a maternal aunt had ovarian cancer at 50. The patient underwent genetic testing and was positive for the BRCA2 mutation. The patient had a bilateral mammogram performed in March 2019 which was reportedly negative. She had bilateral mastectomy on . Her pathology was benign breast tissue with fibrocystic changes. Post procedure she developed a seroma on the left chest wall which was aspirated several times. At this time the wounds are healed well and she has no complaints. Patient does not use any hormone replacement therapy. On April 19, 2020 Gem underwent a bilateral oophorectomy and fallopian tube pathology did not reveal any malignancy. She has had some nausea and vomiting following the surgery with some crampy lower abdominal pain. She is passing flatus without difficulty. She is not complaining of any diarrhea or constipation. She's been seen in the emergency room and had a CAT scan last week which showed reversible hepatic cyst, no dilated ducts, appendix not seen, no sign of acute abdomen or pelvis. Atherosclerotic vascular disease. There is a small umbilical hernia. Family History: 1. sister of breast cancer at 55 2. mother: breast cancer, kidney cancer, pancreatic cancer 3. paternal cousin: breast cancer 4. maternal aunt: ovarian cancer 5. maternal aunt: uterine cancer Hormonal history: Menarche: 14 , 1 AB, child born at 21, breast fed: no menopause: Uterine ablation at 40 Procedure plus: Less than a year Hormones: Negative Past Surgical History: 1. 2. toe 3. uterine ablation 4. plastic surgery on face 5. tubaligation 6. breast biopsy on the right; stero biopsy: benign 7. Bilateral oophorectomy and fallopian tubes removed Past Medical History: 1. HTN 2. 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 neuropathy Social History: smoke: 1/2 PPD since 16 alcohol: no drugs: Marijuana weekly for back pain - Constitutional Comment: for past year night sweats Constitutional: Reports sweats - EENT Comment: glaucoma, wears glasses Eyes: denies blurred vision, denies pain Ears: deny: decreased hearing, tinnitus Ears, nose, mouth and throat: Denies headache, Denies sore throat - Breasts Breasts: bilateral: as per HPI - Cardiovascular Cardiovascular: Reports high blood pressure - Respiratory Comment: smoker, asthma, COPD - Gastrointestinal Gastrointestinal: Reports constipation - Genitourinary (Female) Genitourinary: Denies dysuria, Denies hematuria - Menstruation Menstruation: Reports amenorrhea - Musculoskeletal Musculoskeletal: Reports shooting arm pain - Integumentary Comment: bruise easily both arms, no bleeding abnormalities on test Integumentary: Denies pruritus, Denies rash - Neurological Comment: 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 Gr and no clotting abnormalities have been noted Hematologic/Lymphatic: Reports easy bruising - Allergic/Immunologic Allergic/Immunologic: Reports seasonal allergies Objective - Vital Signs Vital signs: Vital Signs Temp 98.0 F 06/07/20 13:58 Pulse 88 06/07/20 13:58 Resp 18 06/07/20 13:58 BP 149/89 06/07/20 13:58 Pulse Ox 96 06/07/20 13:58 Intake & Output 06/06/20 06/07/20 06/07/20 18:59 06:59 18:59 Weight 81.647 kg - Exam BMI 30.9 - Constitutional General appearance: Present: average body habitus - EENT Eyes: Present: EOMI ENT: Present: hearing grossly normal - Neck Neck: Present: normal ROM - Respiratory Respiratory: bilateral: CTA - Cardiovascular Rhythm: regular Heart sounds: normal: S1, S2 - Gastrointestinal Gastrointestinal Comment(s): Normal bowel sounds, no guarding or rebound, incisions clean and dry and well- healed, no evidence of infection General gastrointestinal: Present: soft - Integumentary Integumentary: Present: normal turgor - Musculoskeletal Musculoskeletal: Present: gait normal - Psychiatric Psychiatric: Present: A&O x's 3, appropriate affect, intact judgment & insight - Additional findings Additional findings: Incisions chest wall: Clean and dry, no evidence of any disease or infection Assessment and Plan Assessment: Impression: 1. status post bilateral mastectomy healed well at this time 2. BRCA2 3. bilateral oophrectomy and tubes removed 4. abdominal discomfort/nausea and vomiting Plan: 1. repeat exam in 6 months 2. Follow-up with Dr. Pickett Cc: Dr. Pickett encounter 25 minutes > 50% time spent in planning and counselling
== END | disposition home or self-care (01) ==
LOC: WWCWWP 13:43
PROVIDERS: ATTEND Surgery
DX: Z53.9 Procedure and treatment not carried out, unspecified reason (principal)

== ENCOUNTER → 2021-01-10 | Outpatient (CLI) | payer OTHER ==
[2021-01-10 12:36] VITALS: BP 147/81; PULSE 78; RESP 18; TEMP 97.9
--- NOTE | 2021-01-10 12:38 | P.PN ---
Subjective Progress Note Date: 01/10/21 Principal diagnosis: bilateral mastectomies BRCA2+ BRCA2 +/surveillance BRACA2 positive Gem is a 54-year-old white female who presented for discussion regarding BRCA2 positive genetic testing, she was seen in consultation for Dr. Pickett. Patient was seen by Dr. Stockton in June 2019 to discuss possible genetic testing secondary to her family history. The patient's sister had breast cancer at age 55 and due to metastatic disease. She was positive for BRCA2 gene. The patient's mother had breast cancer in her mid 50s and pancreatic cancer at 60, a maternal aunt had ovarian cancer at 50. The patient underwent genetic testing and was positive for the BRCA2 mutation. The patient had a bilateral mammogram performed in March 2019 which was reportedly negative. She had bilateral mastectomy on 10-04-19. Her pathology was benign breast tissue with fibrocystic changes. Post procedure she developed a seroma on the left chest wall which was aspirated several times. At this time the wounds are healed well and she has no complaints. Patient does not use any hormone replacement therapy. On April 19, 2020 Gem underwent a bilateral oophorectomy and fallopian tube pathology did not reveal any malignancy. She has had some nausea and vomiting following the surgery with some crampy lower abdominal pain. At this time she states she has some tightness across the chest wall related to her mastectomies. She also noted a fullness at the medial aspect of her right mastectomy incision. This has not changed, it is not painful, and has been present since the surgery. Family History: 1. sister of breast cancer at 55 2. mother: breast cancer, kidney cancer, pancreatic cancer 3. paternal cousin: breast cancer 4. maternal aunt: ovarian cancer 5. maternal aunt: uterine cancer Hormonal history: Menarche: 14 , 1 AB, child born at 21, breast fed: no menopause: Uterine ablation at 40 Procedure plus: Less than a year Hormones: Negative Past Surgical History: 1. 2. toe 3. uterine ablation 4. plastic surgery on face 5. tubaligation 6. breast biopsy on the right; stero biopsy: benign 7. Bilateral oophorectomy and fallopian tubes removed Past Medical History: 1. HTN 2. 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 neuropathy Social History: smoke: 1/2 PPD since alcohol: no drugs: Marijuana weekly for back pain - Constitutional Comment: for past year night sweats Constitutional: Reports sweats - EENT Comment: glaucoma, wears glasses Eyes: denies blurred vision, denies pain Ears: deny: decreased hearing, tinnitus Ears, nose, mouth and throat: Denies headache, Denies sore throat - Breasts Breasts: bilateral: as per HPI - Cardiovascular Cardiovascular: Reports high blood pressure - Respiratory Comment: smoker, asthma, COPD - Gastrointestinal Gastrointestinal: Reports constipation - Genitourinary (Female) Genitourinary: Denies dysuria, Denies hematuria - Menstruation Menstruation: Reports amenorrhea - Musculoskeletal Musculoskeletal: Reports shooting arm pain - Integumentary Comment: bruise easily both arms, no bleeding abnormalities on test Integumentary: Denies pruritus, Denies rash - Neurological Comment: 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 Gr and no clotting abnormalities have been noted Hematologic/Lymphatic: Reports easy bruising - Allergic/Immunologic Allergic/Immunologic: Reports seasonal allergies Objective - Constitutional General appearance: Present: average body habitus - EENT Eyes: Present: EOMI ENT: Present: hearing grossly normal - Neck Neck: Present: normal ROM - Respiratory Respiratory: bilateral: CTA - Cardiovascular Rhythm: regular Heart sounds: normal: S1, S2 - Integumentary Integumentary Comment(s): Bilateral chest wall incisions clean and dry well-healed, small dogear medial aspect of the right incision no evidence of any cancer Right axilla: No adenopathy of concern Left axilla: No adenopathy of concern - Musculoskeletal Musculoskeletal: Present: gait normal - Psychiatric Psychiatric: Present: A&O x's 3, appropriate affect, intact judgment & insight Assessment and Plan Assessment: Impression: 1. HTN 2. 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 neuropathy 5. Status post bilateral mastectomy for BRCA2 genetic disorder Plan: 1. Follow-up in one year for examination of chest wall 2. Follow up sooner if any concerns 3. Bra and prosthesis status post bilateral mastectomy Encounter 15 minutes, time spent in examination and counselling. CC: Dr. Pickett
== END ==
LOC: WWCWWP 11:36
PROVIDERS: ATTEND Surgery
DX: Z15.89 Genetic susceptibility to other disease (principal); I10 Essential (primary) hypertension; E78.00 Pure hypercholesterolemia, unspecified; M47.812 Spondylosis without myelopathy or radiculopathy, cervical region; F17.210 Nicotine dependence, cigarettes, uncomplicated; G62.9 Polyneuropathy, unspecified; Z90.13 Acquired absence of bilateral breasts and nipples; Z88.6 Allergy status to analgesic agent; Z88.8 Allergy status to other drugs, medicaments and biological substances

== ENCOUNTER → 2021-01-22 | Outpatient (CLI) | payer OTHER ==
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

== ENCOUNTER → 2021-08-01 | Outpatient (CLI) | payer OTHER ==
[2021-08-01 10:05] VITALS: BP 130/80; PULSE 75; RESP 18; TEMP 98.3
--- NOTE | 2021-08-01 10:28 | P.PN ---
Subjective Progress Note Date: 08/01/21 Principal diagnosis: BRCA2 + bilateral mastectomies BRCA2+ BRCA2 +/surveillance BRACA2 positive Gem is a 56-year-old white female who presented for discussion regarding BRCA2 positive genetic testing, she was seen in consultation for Dr. Pickett. Patient was seen by Dr. Stockton in June 2019 to discuss possible genetic testing secondary to her family history. The patient's sister had breast cancer at age 55 and due to metastatic disease. She was positive for BRCA2 gene. The patient's mother had breast cancer in her mid 50s and pancreatic cancer at 60, a maternal aunt had ovarian cancer at 50. The patient underwent genetic testing and was positive for the BRCA2 mutation. The patient had a bilateral mammogram performed in March 2019 which was reportedly negative. She had bilateral mastectomy on 10-04-19. Her pathology was benign breast tissue with fibrocystic changes. Post procedure she developed a seroma on the left chest wall which was aspirated several times. She is complaining of some fullness right chest wall incision at the medial aspect. On April 19, 2020 Gem underwent a bilateral oophorectomy and fallopian tube pathology did not reveal any malignancy. She has had some nausea and vomiting following the surgery with some crampy lower abdominal pain. At this time she is not complaining of any loss masses or nodules of concern on her chest wall. Family History: 1. sister of breast cancer at 55 2. mother: breast cancer, kidney cancer, pancreatic cancer 3. paternal cousin: breast cancer 4. maternal aunt: ovarian cancer 5. maternal aunt: uterine cancer Hormonal history: Menarche: 14 , 1 AB, child born at 21, breast fed: no menopause: Uterine ablation at 40 Procedure plus: Less than a year Hormones: Negative Past Surgical History: 1. 2. toe 3. uterine ablation 4. plastic surgery on face 5. tubaligation 6. breast biopsy on the right; stero biopsy: benign 7. Bilateral oophorectomy and fallopian tubes removed 8. bilateral mastectomy 9. gallbladder Past Medical History: 1. HTN 2. 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 neuropathy Social History: smoke: 1/2 PPD since 16 alcohol: no drugs: Marijuana weekly for back pain - Constitutional Comment: for past year night sweats Constitutional: Reports sweats - EENT Comment: glaucoma, wears glasses Eyes: denies blurred vision, denies pain Ears: deny: decreased hearing, tinnitus Ears, nose, mouth and throat: Denies headache, Denies sore throat - Breasts Breasts: bilateral: as per HPI - Cardiovascular Cardiovascular: Reports high blood pressure - Respiratory Comment: smoker, asthma, COPD - Gastrointestinal Gastrointestinal: Reports constipation - Genitourinary (Female) Genitourinary: Denies dysuria, Denies hematuria - Menstruation Menstruation: Reports amenorrhea - Musculoskeletal Musculoskeletal: Reports shooting arm pain - Integumentary Comment: bruise easily both arms, no bleeding abnormalities on test Integumentary: Denies pruritus, Denies rash - Neurological Comment: 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 Gr and no clotting abnormalities have been noted Hematologic/Lymphatic: Reports easy bruising - Allergic/Immunologic Allergic/Immunologic: Reports seasonal allergies Objective - Vital Signs Vital signs: Vital Signs Temp 98.3 F 08/01/21 10:02 Pulse 75 08/01/21 10:02 Resp 18 08/01/21 10:02 BP 130/80 08/01/21 10:02 Pulse Ox 96 08/01/21 10:02 Intake & Output 07/31/21 08/01/21 08/01/21 18:59 06:59 18:59 Weight 86.183 kg - Exam BMI 32.6 - Constitutional General appearance: Present: cooperative - EENT Eyes: Present: EOMI ENT: Present: hearing grossly normal - Neck Neck: Present: normal ROM - Respiratory Respiratory: bilateral: CTA - Cardiovascular Heart sounds: normal: S1, S2 - Gastrointestinal General gastrointestinal: Present: soft - Integumentary Integumentary: Present: normal turgor - Musculoskeletal Musculoskeletal: Present: gait normal - Psychiatric Psychiatric: Present: A&O x's 3, appropriate affect, intact judgment & insight - Additional findings Additional findings: Chest Wall: Inspection: Bilateral Incisions well-healed, there is a dog ear at the medial aspect of the right incision which concerns the patient Right axilla: No adenopathy of concern Left axilla: No adenopathy of concern Assessment and Plan Assessment: Impression: Hypertension High cholesterol DJD in neck Neuropathy Status post bilateral mastectomy for BRCA2 genetic disorder Symptomatic dogear medial aspect right incision No evidence of any breast cancer on the chest wall Plan: Revision of right mastectomy incision in the operating room Patient encouraged to stop smoking prior to revision of incision Patient will take vitamin C thousand milligrams a day for 2 weeks prior to surgical intervention CC: Dr. Pickett
== END ==
LOC: WWCWWP 09:41
PROVIDERS: ATTEND Surgery
DX: Z08 Encounter for follow-up examination after completed treatment for malignant neoplasm (principal); I10 Essential (primary) hypertension; E78.00 Pure hypercholesterolemia, unspecified; M47.812 Spondylosis without myelopathy or radiculopathy, cervical region; G62.9 Polyneuropathy, unspecified; F17.200 Nicotine dependence, unspecified, uncomplicated; Z90.13 Acquired absence of bilateral breasts and nipples; Z88.6 Allergy status to analgesic agent; Z88.8 Allergy status to other drugs, medicaments and biological substances

== ENCOUNTER → 2022-03-14 | Outpatient (CLI) | payer OTHER ==
[2022-03-14 16:51] VITALS: BP 140/85; PULSE 79; RESP 18; TEMP 97.6
--- NOTE | 2022-03-14 16:58 | P.PN ---
Subjective Progress Note Date: 03/14/22 Principal diagnosis: BRCA2 positive BRCA2 + bilateral mastectomies BRCA2+ BRCA2 +/surveillance Gem is a 56-year-old white female who presented for discussion regarding BRCA2 positive genetic testing, she was seen in consultation for Dr. Pickett. Patient was seen by Dr. Stockton in June 2019 to discuss possible genetic testing secondary to her family history. The patient's sister had breast cancer at age 55 and due to metastatic disease. She was positive for BRCA2 gene. The patient's mother had breast cancer in her mid 50s and pancreatic cancer at 60, a maternal aunt had ovarian cancer at 50. The patient underwent genetic testing and was positive for the BRCA2 mutation. The patient had a bilateral mammogram performed in March 2019 which was reportedly negative. She had bilateral mastectomy on 10-04-19. Her pathology was benign breast tissue with fibrocystic changes. Post procedure she developed a seroma on the left chest wall which was aspirated several times. Cyst totally resolved at this time. She is doing well with respect to her chest wall. She is not complaining of any new lumps masses or nodules of concern. She does complain of some tissue fullness in the medial aspect of the right breast incision. On April 19, 2020 Gem underwent a bilateral oophorectomy and fallopian tube pathology did not reveal any malignancy. At this time she is not complaining of any masses or nodules of concern on her chest wall. Family History: 1. sister of breast cancer at 55 2. mother: breast cancer, kidney cancer, pancreatic cancer 3. paternal cousin: breast cancer 4. maternal aunt: ovarian cancer 5. maternal aunt: uterine cancer Hormonal history: Menarche: 14 , 1 AB, child born at 21, breast fed: no menopause: Uterine ablation at 40 Procedure plus: Less than a year Hormones: Negative Past Surgical History: 1. 2. toe 3. uterine ablation 4. plastic surgery on face 5. tubaligation 6. breast biopsy on the right; stero biopsy: benign 7. Bilateral oophorectomy and fallopian tubes removed 8. bilateral mastectomy 9. gallbladder Past Medical History: 1. HTN 2. 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 neuropathy Social History: smoke: 1/2 PPD since 16 alcohol: no drugs: Marijuana weekly for back pain - Constitutional Comment: for past year night sweats Constitutional: Reports sweats - EENT Comment: glaucoma, wears glasses Eyes: denies blurred vision, denies pain Ears: deny: decreased hearing, tinnitus Ears, nose, mouth and throat: Denies headache, Denies sore throat - Breasts Breasts: bilateral: as per HPI - Cardiovascular Cardiovascular: Reports high blood pressure - Respiratory Comment: smoker, asthma, COPD - Gastrointestinal Gastrointestinal: Reports constipation - Genitourinary (Female) Genitourinary: Denies dysuria, Denies hematuria - Menstruation Menstruation: Reports amenorrhea - Musculoskeletal Musculoskeletal: Reports shooting arm pain - Integumentary Comment: bruise easily both arms, no bleeding abnormalities on test Integumentary: Denies pruritus, Denies rash - Neurological Comment: 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 Gr and no clotting abnormalities have been noted Hematologic/Lymphatic: Reports easy bruising - Allergic/Immunologic Allergic/Immunologic: Reports seasonal allergies Objective - Vital Signs Vital signs: Vital Signs Temp 97.6 F 03/14/22 16:47 Pulse 79 03/14/22 16:47 Resp 18 03/14/22 16:47 BP 140/85 03/14/22 16:47 Pulse Ox 95 03/14/22 16:47 FiO2 Intake & Output 03/13/22 03/14/22 03/14/22 18:59 06:59 18:59 Weight 88.451 kg - Exam BMI: 33.5 - Constitutional General appearance: Present: cooperative - EENT Eyes: Present: EOMI ENT: Present: hearing grossly normal - Neck Neck: Present: normal ROM - Respiratory Respiratory: bilateral: CTA - Cardiovascular Rhythm: regular Heart sounds: normal: S1, S2 - Gastrointestinal General gastrointestinal: Present: soft - Integumentary Integumentary: Present: normal turgor - Musculoskeletal Musculoskeletal: Present: gait normal - Psychiatric Psychiatric: Present: A&O x's 3, appropriate affect, intact judgment & insight - Additional findings Additional findings: Chest wall evaluation: Right chest wall: No evidence of recurrent cancer Right axilla: No adenopathy of concern Left chest wall: No evidence of recurrent cancer Left axilla: No adenopathy of concern Assessment and Plan Assessment: Impression: Patient BRCA2 positive, status post bilateral mastectomies No evidence of any disease and right or left chest wall Plan: Close surveillance repeat chest wall evaluation 1 year If patient wishes the medial dog ear on the right breast may be reduced CC: Dr. Pickett
== END ==
LOC: WWCWWP 15:55
PROVIDERS: ATTEND Surgery
DX: Z08 Encounter for follow-up examination after completed treatment for malignant neoplasm (principal); Z85.3 Personal history of malignant neoplasm of breast; I10 Essential (primary) hypertension; Z90.13 Acquired absence of bilateral breasts and nipples; E78.00 Pure hypercholesterolemia, unspecified; F17.210 Nicotine dependence, cigarettes, uncomplicated; J44.9 Chronic obstructive pulmonary disease, unspecified; Z88.5 Allergy status to narcotic agent; Z88.8 Allergy status to other drugs, medicaments and biological substances

== ENCOUNTER → 2022-05-06 | Outpatient (CLI) | payer OTHER ==
[2022-05-06 10:48] VITALS: BP 130/85; PULSE 80; RESP 17; TEMP 98.2
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
== END ==
LOC: WWCWWP 10:31
PROVIDERS: ATTEND Obstetrics & Gynecology
DX: Z01.419 Encounter for gynecological examination (general) (routine) without abnormal findings (principal); J45.909 Unspecified asthma, uncomplicated; E78.5 Hyperlipidemia, unspecified; I10 Essential (primary) hypertension; Z90.13 Acquired absence of bilateral breasts and nipples; F41.9 Anxiety disorder, unspecified; F32.A Depression, unspecified; F17.210 Nicotine dependence, cigarettes, uncomplicated; Z80.3 Family history of malignant neoplasm of breast; Z88.5 Allergy status to narcotic agent; Z88.8 Allergy status to other drugs, medicaments and biological substances

== ENCOUNTER → 2023-03-13 | Outpatient (CLI) | payer OTHER ==
[2023-03-13 10:26] VITALS: BP 153/99; PULSE 71; TEMP 98.1
--- NOTE | 2023-03-13 10:53 | P.PN ---
Subjective Progress Note Date: 03/13/23 Principal diagnosis: BRCA2 + surveillance bilateral mastectomies BRCA2+ BRCA2 +/surveillance Gem is a 57-year-old white female who presented for discussion regarding BRCA2 positive genetic testing, she was seen in consultation for Dr. Pickett. Patient was seen by Dr. Stockton in June 2019 to discuss possible genetic testing secondary to her family history. The patient's sister had breast cancer at age 55 and due to metastatic disease. She was positive for BRCA2 gene. The patient's mother had breast cancer in her mid 50s and pancreatic cancer at 60, a maternal aunt had ovarian cancer at 50. The patient underwent genetic testing and was positive for the BRCA2 mutation. The patient had a bilateral mammogram performed in March 2019 which was reportedly negative. She had bilateral mastectomy on 10-04-19. Her pathology was benign breast tissue with fibrocystic changes. She is doing well with respect to her chest wall. She is not complaining of any new lumps masses or nodules of concern. She does complain of some tissue fullness in the medial aspect of the right breast incision. On April 19, 2020 Gem underwent a bilateral oophorectomy and fallopian tube pathology did not reveal any malignancy. At this time she is not complaining of any masses or nodules of concern on her chest wall. Family History: 1. sister of breast cancer at 55 2. mother: breast cancer, kidney cancer, pancreatic cancer 3. paternal cousin: breast cancer 4. maternal aunt: ovarian cancer 5. maternal aunt: uterine cancer Hormonal history: Menarche: 14 , 1 AB, child born at 21, breast fed: no menopause: Uterine ablation at 40 Procedure plus: Less than a year Hormones: Negative Past Surgical History: 1. 2. toe 3. uterine ablation 4. plastic surgery on face 5. tubaligation 6. breast biopsy on the right; stero biopsy: benign 7. Bilateral oophorectomy and fallopian tubes removed 8. bilateral mastectomy 9. gallbladder Past Medical History: 1. HTN 2. 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 neuropathy Social History: smoke: 1/2 PPD since 16 alcohol: no drugs: Marijuana weekly for back pain - Constitutional Comment: for past year night sweats Constitutional: Reports sweats - EENT Comment: glaucoma, wears glasses Eyes: denies blurred vision, denies pain Ears: deny: decreased hearing, tinnitus Ears, nose, mouth and throat: Denies headache, Denies sore throat - Breasts Breasts: bilateral: as per HPI - Cardiovascular Cardiovascular: Reports high blood pressure - Respiratory Comment: smoker, asthma, COPD - Gastrointestinal Gastrointestinal: Reports constipation - Genitourinary (Female) Genitourinary: Denies dysuria, Denies hematuria - Menstruation Menstruation: Reports amenorrhea - Musculoskeletal Musculoskeletal: Reports shooting arm pain - Integumentary Comment: bruise easily both arms, no bleeding abnormalities on test Integumentary: Denies pruritus, Denies rash - Neurological Comment: 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 Gr and no clotting abnormalities have been noted Hematologic/Lymphatic: Reports easy bruising - Allergic/Immunologic Allergic/Immunologic: Reports seasonal allergies Objective - Vital Signs Vital signs: Vital Signs Temp 98.1 F 03/13/23 10:21 Pulse 71 03/13/23 10:21 Resp BP 153/99 03/13/23 10:21 Pulse Ox 97 03/13/23 10:21 FiO2 Intake & Output 03/12/23 03/13/23 03/13/23 18:59 06:59 18:59 Weight 90.718 kg - Constitutional General appearance: Present: cooperative - EENT Eyes: Present: EOMI ENT: Present: hearing grossly normal - Neck Neck: Present: normal ROM - Respiratory Respiratory: bilateral: CTA - Cardiovascular Rhythm: regular Heart sounds: normal: S1, S2 - Gastrointestinal General gastrointestinal: Present: soft - Integumentary Integumentary: Present: normal turgor - Musculoskeletal Musculoskeletal: Present: gait normal - Psychiatric Psychiatric: Present: A&O x's 3, appropriate affect, intact judgment & insight - Additional findings Additional findings: Chest wall evaluation: Right chest wall: No evidence of recurrent cancer Right axilla: No adenopathy of concern Left chest wall: No evidence of recurrent cancer Left axilla: No adenopathy of concern Assessment and Plan Assessment: Impression: Patient BRCA2 positive, status post bilateral mastectomies No evidence of any disease and right or left chest wall Plan: Close surveillance repeat chest wall evaluation 1 year If patient wishes the medial dog ear on the right breast may be reduced, at this time she is going to wait CC: Dr. Pickett
== END ==
LOC: WWCWWP 09:43
PROVIDERS: ATTEND Surgery
DX: Z85.3 Personal history of malignant neoplasm of breast (principal); I10 Essential (primary) hypertension; E78.00 Pure hypercholesterolemia, unspecified; F17.210 Nicotine dependence, cigarettes, uncomplicated; M50.30 Other cervical disc degeneration, unspecified cervical region; G62.9 Polyneuropathy, unspecified; Z90.13 Acquired absence of bilateral breasts and nipples; Z80.3 Family history of malignant neoplasm of breast; Z88.8 Allergy status to other drugs, medicaments and biological substances; Z88.6 Allergy status to analgesic agent

== ENCOUNTER → 2023-05-26 | Outpatient (CLI) | payer OTHER ==
[2023-05-26 10:36] VITALS: BP 138/85; PULSE 83; RESP 17; TEMP 98.4
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
== END ==
LOC: WWCWWP 10:25
PROVIDERS: ATTEND Obstetrics & Gynecology
DX: Z12.31 Encounter for screening mammogram for malignant neoplasm of breast (principal); F17.210 Nicotine dependence, cigarettes, uncomplicated; I10 Essential (primary) hypertension; J45.909 Unspecified asthma, uncomplicated; Z80.3 Family history of malignant neoplasm of breast; Z85.3 Personal history of malignant neoplasm of breast; Z78.0 Asymptomatic menopausal state; Z90.13 Acquired absence of bilateral breasts and nipples; E78.5 Hyperlipidemia, unspecified; Z87.39 Personal history of other diseases of the musculoskeletal system and connective tissue; Z15.02 Genetic susceptibility to malignant neoplasm of ovary; Z15.01 Genetic susceptibility to malignant neoplasm of breast; Z79.51 Long term (current) use of inhaled steroids; Z79.899 Other long term (current) drug therapy; Z88.5 Allergy status to narcotic agent; Z88.8 Allergy status to other drugs, medicaments and biological substances

== ENCOUNTER → 2024-05-31 | Outpatient (CLI) | payer OTHER ==
[2024-05-31 11:32] VITALS: BP 129/76; PULSE 85; RESP 17; TEMP 98.3
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
== END ==
LOC: WWCWWP 11:13
PROVIDERS: ATTEND Obstetrics & Gynecology

== ENCOUNTER → 2024-07-21 | Outpatient (CLI) | payer OTHER ==
[2024-07-21 12:24] VITALS: BP 116/79; PULSE 79; RESP 18; TEMP 97.9
--- NOTE | 2024-07-21 12:45 | P.PN ---
Subjective Progress Note Date: 07/21/24 Principal diagnosis: BRCA2 + 07-20-24 Principal diagnosis: BRCA2 + surveillance bilateral mastectomies BRCA2+ BRCA2 +/surveillance Gem is a 59-year-old white female who presented for discussion regarding BRCA2 positive genetic testing, she was seen in consultation for Dr. Pickett. Patient was seen by Dr. Stockton in June 2019 to discuss possible genetic testing secondary to her family history. The patient's sister had breast cancer at age 55 and due to metastatic disease. She was positive for BRCA2 gene. The patient's mother had breast cancer in her mid 50s and pancreatic cancer at 60, a maternal aunt had ovarian cancer at 50. The patient underwent genetic testing and was positive for the BRCA2 mutation. The patient had a bilateral mammogram performed in March 2019 which was reportedly negative. She had bilateral mastectomy on 10-04-19. Her pathology was benign breast tissue with fibrocystic changes. She is doing well with respect to her chest wall. She is not complaining of any new lumps masses or nodules of concern. She does complain of some tissue fullness in the medial aspect of the right breast incision. On April 19, 2020 Gem underwent a bilateral oophorectomy and fallopian tube pathology did not reveal any malignancy. At this time she is not complaining of any masses or nodules of concern on her chest wall. She does have some redundant tissue in the mid aspect of the chest wall which is difficult for her to find closed if it at times. She did have an upper GI scope and noted to have reflux. It is called NERD-none esophageal reflux disease. She is treated with pepcid and probiotics Family History: 1. sister of breast cancer at 55 2. mother: breast cancer, kidney cancer, pancreatic cancer 3. paternal cousin: breast cancer 4. maternal aunt: ovarian cancer 5. maternal aunt: uterine cancer Hormonal history: Menarche: 14 , 1 AB, child born at 21, breast fed: no menopause: Uterine ablation at 40 Procedure plus: Less than a year Hormones: Negative Past Surgical History: 1. 2. toe 3. uterine ablation 4. plastic surgery on face 5. tubaligation 6. breast biopsy on the right; stero biopsy: benign 7. Bilateral oophorectomy and fallopian tubes removed 8. bilateral mastectomy 9. gallbladder Past Medical History: 1. HTN 2. 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 neuropathy Social History: smoke: 1/2 PPD since 16 alcohol: no drugs: Marijuana weekly for back pain - Constitutional Comment: for past year night sweats Constitutional: Reports sweats - EENT Comment: glaucoma, wears glasses Eyes: denies blurred vision, denies pain Ears: deny: decreased hearing, tinnitus Ears, nose, mouth and throat: Denies headache, Denies sore throat - Breasts Breasts: bilateral: as per HPI - Cardiovascular Cardiovascular: Reports high blood pressure - Respiratory Comment: smoker, asthma, COPD - Gastrointestinal Gastrointestinal: Reports constipation - Genitourinary (Female) Genitourinary: Denies dysuria, Denies hematuria - Menstruation Menstruation: Reports amenorrhea - Musculoskeletal Musculoskeletal: Reports shooting arm pain - Integumentary Comment: bruise easily both arms, no bleeding abnormalities on test Integumentary: Denies pruritus, Denies rash - Neurological Comment: 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 Gr and no clotting abnormalities have been noted Hematologic/Lymphatic: Reports easy bruising - Allergic/Immunologic Allergic/Immunologic: Reports seasonal allergies Objective - Vital Signs Vital signs: Vital Signs Temp 97.9 F 07/21/24 12:18 Pulse 79 07/21/24 12:18 Resp 18 07/21/24 12:18 BP 116/79 07/21/24 12:18 Pulse Ox 95 07/21/24 12:18 FiO2 Intake & Output 07/20/24 07/21/24 07/21/24 18:59 06:59 18:59 Weight 91.626 kg - Constitutional General appearance: Present: cooperative - EENT Eyes: Present: EOMI ENT: Present: hearing grossly normal - Neck Neck: Present: normal ROM - Respiratory Respiratory: bilateral: CTA - Cardiovascular Rhythm: regular Heart sounds: normal: S1, S2 - Integumentary Integumentary: Present: normal turgor - Musculoskeletal Musculoskeletal: Present: gait normal - Psychiatric Psychiatric: Present: A&O x's 3, appropriate affect, intact judgment & insight - Additional findings Additional findings: Chest wall evaluation: Right chest wall: No evidence of recurrent cancer Right axilla: No adenopathy of concern Left chest wall: No evidence of recurrent cancer Left axilla: No adenopathy of concern Assessment and Plan Assessment: Impression: Patient BRCA2 positive, status post bilateral mastectomies medial sternal soft tissue fullness No evidence of any disease and right or left chest wall Plan: Close surveillance repeat chest wall evaluation 1 year medial dog ear on the right breast to be reduced clearance Dr. Pickett Risk and benefits of the procedure discussed. Risk include but are not limited to bleeding, infection, reaction to the anesthetic. She will not be completely symmetric but will be more symmetric than she is now. She understands and wishes to proceed. Additionally there could be some difficulty with wound healing and if that were to happen we would address it at the time. She is encouraged to stop smoking prior to the operative procedure. CC: Dr. Pickett
== END ==
LOC: WWCWWP 12:07
PROVIDERS: ATTEND Surgery
DX: N60.11 Diffuse cystic mastopathy of right breast (principal); Z90.13 Acquired absence of bilateral breasts and nipples; Z80.3 Family history of malignant neoplasm of breast; Z88.8 Allergy status to other drugs, medicaments and biological substances; Z88.5 Allergy status to narcotic agent

== ENCOUNTER 2024-08-23 07:13 | Day surgery (SDC) | payer OTHER ==
--- NOTE | 2024-08-19 16:37 | P.PN ---
Subjective Progress Note Date: 08/19/24 Principal diagnosis: Redundant tissue medial aspect of right chest wall Subjective Progress Note Date: 08-19-24 Principal diagnosis: Principal diagnosis: BRCA2 + surveillance bilateral mastectomies BRCA2+ BRCA2 +/surveillance Gem is a 59-year-old white female who presented for discussion regarding BRCA2 positive genetic testing, she was seen in consultation for Dr. Pickett. Patient was seen by Dr. Stockton in June 2019 to discuss possible genetic testing secondary to her family history. The patient's sister had breast cancer at age 55 and due to metastatic disease. She was positive for BRCA2 gene. The patient's mother had breast cancer in her mid 50s and pancreatic cancer at 60, a maternal aunt had ovarian cancer at 50. The patient underwent genetic testing and was positive for the BRCA2 mutation. The patient had a bilateral mammogram performed in March 2019 which was reportedly negative. She had bilateral mastectomy on 10-04-19. Her pathology was benign breast tissue with fibrocystic changes. She is doing well with respect to her chest wall. She is not complaining of any new lumps masses or nodules of concern. She does complain of some tissue fullness in the medial aspect of the right breast incision. On April 19, 2020 Gem underwent a bilateral oophorectomy and fallopian tube pathology did not reveal any malignancy. At this time she is not complaining of any masses or nodules of concern on her chest wall. She does have some redundant tissue in the mid aspect of the chest wall which is difficult for her to find clothes to fit at times. She did have an upper GI scope and noted to have reflux. It is called NERD-none esophageal reflux disease. She is treated with pepcid and probiotics Family History: 1. sister of breast cancer at 55 2. mother: breast cancer, kidney cancer, pancreatic cancer 3. paternal cousin: breast cancer 4. maternal aunt: ovarian cancer 5. maternal aunt: uterine cancer Hormonal history: Menarche: 14 , 1 AB, child born at 21, breast fed: no menopause: Uterine ablation at 40 Procedure plus: Less than a year Hormones: Negative Past Surgical History: 1. 2. toe 3. uterine ablation 4. plastic surgery on face 5. tubaligation 6. breast biopsy on the right; stero biopsy: benign 7. Bilateral oophorectomy and fallopian tubes removed 8. bilateral mastectomy 9. gallbladder Past Medical History: 1. HTN 2. 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 neuropathy Social History: smoke: 1/2 PPD since 16 alcohol: no drugs: Marijuana weekly for back pain - Constitutional Comment: for past year night sweats Constitutional: Reports sweats - EENT Comment: glaucoma, wears glasses Eyes: denies blurred vision, denies pain Ears: deny: decreased hearing, tinnitus Ears, nose, mouth and throat: Denies headache, Denies sore throat - Breasts Breasts: bilateral: as per HPI - Cardiovascular Cardiovascular: Reports high blood pressure - Respiratory Comment: smoker, asthma, COPD - Gastrointestinal Gastrointestinal: Reports constipation - Genitourinary (Female) Genitourinary: Denies dysuria, Denies hematuria - Menstruation Menstruation: Reports amenorrhea - Musculoskeletal Musculoskeletal: Reports shooting arm pain - Integumentary Comment: bruise easily both arms, no bleeding abnormalities on test Integumentary: Denies pruritus, Denies rash - Neurological Comment: 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 Gr and no clotting abnormalities have been noted Hematologic/Lymphatic: Reports easy bruising - Allergic/Immunologic Allergic/Immunologic: Reports seasonal allergies Objective - Vital Signs Vital signs: Intake & Output 08/18/24 08/19/24 08/19/24 18:59 06:59 18:59 Weight 91.898 kg - Constitutional General appearance: Present: cooperative - EENT Eyes: Present: EOMI ENT: Present: hearing grossly normal - Neck Neck: Present: normal ROM - Respiratory Respiratory: bilateral: CTA - Cardiovascular Rhythm: regular Heart sounds: normal: S1, S2 - Integumentary Integumentary: Present: normal turgor - Musculoskeletal Musculoskeletal: Present: gait normal - Psychiatric Psychiatric: Present: A&O x's 3, appropriate affect, intact judgment & insight - Additional findings Additional findings: Chest wall evaluation: Right chest wall: No evidence of recurrent cancer; redundant tissue medial aspect of scar Right axilla: No adenopathy of concern Left chest wall: No evidence of recurrent cancer Left axilla: No adenopathy of concern Assessment and Plan Assessment: Impression: Patient BRCA2 positive, status post bilateral mastectomies medial sternal soft tissue fullness No evidence of any disease and right or left chest wall Plan: Redundant tissue medial right chest wall to be risk resected via scar revision clearance Dr. Pickett Risk and benefits of the procedure discussed. Risk include but are not limited to bleeding, infection, reaction to the anesthetic. She will not be completely symmetric but will be more symmetric than she is now. She understands and wishes to proceed. Additionally there could be some difficulty with wound healing and if that were to happen we would address it at the time. She is encouraged to stop smoking prior to the operative procedure.
[~2024-08-23 07:13] MED LIST changes: -ONDANSETRON 4 MG/2 ML VIAL IVP ONE
[2024-08-23] MEDS: IV FLUID CONTINUATION 1,000 ML IV ONE ×2 (08:11→09:17)
[2024-08-23] MEDS: ACETAMINOPHEN TAB 500 MG TAB PO PRN (08:19)
[2024-08-23] MEDS: ONDANSETRON 4 MG/2 ML VIAL IVP ONE (08:20)
[2024-08-23] MEDS: HEPARIN SODIUM,PORCINE 5,000 UNIT/ML 1 ML VIAL SQ PRN (08:20)
[2024-08-23] MEDS ORDERED: ACETAMINOPHEN IV (For NPO) 1,000 MG/100 ML VIAL ONE (08:24)
[2024-08-23] MEDS ORDERED: fentaNYL (PF) 50 MCG/ML 2 ML AMP ONE (08:24)
[2024-08-23] MEDS ORDERED: LIDOCAINE 1% INJ 10MG/ML (20 ML MDV) ONE (08:24)
[2024-08-23] MEDS ORDERED: MIDAZOLAM 2 MG/2 ML VIAL ONE (08:24)
[2024-08-23] MEDS ORDERED: SUCCINYLCHOLINE CHLORIDE 200 MG/10 ML VIAL IV ONE (08:24)
[2024-08-23] MEDS ORDERED: PROPOFOL 10 MG/ML 20 ML VIAL IV ONE (08:24)
[2024-08-23] MEDS ORDERED: ePHEDrine 50 MG/ML 1 ML VIAL ONE (08:24)
[2024-08-23] MEDS: LIDOCAINE 1% (10MG/ML) FOR IV START INTRADERMA PRN (09:06)
--- NOTE | 2024-08-23 09:41 | P.BCAON ---
Date of Procedure: 08/23/24 Preoperative Diagnosis: Redundant tissue medial aspect of right mastectomy scar Postoperative Diagnosis: Same Procedure(s) Performed: Right mastectomy scar revision Anesthesia: TOMAS Surgeon: Roxana Garcia Estimated Blood Loss (ml): 5 IV fluids (ml): 600 Pathology: other (Scar and subcutaneous tissue right chest wall) Condition: stable Disposition: same day Indications for Procedure: Redundant tissue right mastectomy scar Operative Findings: Redundant tissue right mastectomy scar Description of Procedure: The patient was seen in the preoperative area and the area of concern was marked. The patient was brought to the operative suite. Following induction of anesthesia the right chest wall was prepped and draped in a sterile fashion. The area was again marked this was 14 cm x 5 cm. Using a 15 blade scalpel the skin/scar and subcutaneous tissue were resected. A electrocautery device was used to be sure that hemostasis was attained. The wound was irrigated. After we are sure that hemostasis was attained the defect was again measured it was 14.5 cm x 5 cm. The superior and inferior skin was brought together using interrupted 3-0 Vicryl suture. This was followed by a running 3-0 Vicryl subcutaneous suture. This was followed by a 4-0 Monocryl subcuticular suture. 20 cc of 1% lidocaine were injected into the incision. Surgical glue was placed. All instrument and sponge counts were correct at the end of the case. Sterile dressing was placed. The patient tolerated the procedure in stable condition.
[2024-08-23 09:53] VITALS: TEMP 97
[2024-08-23 10:03] VITALS: RESP 16
[2024-08-23 11:01] VITALS: BP 112/78; PULSE 68
== END 2024-08-23 11:08 | disposition home or self-care (01) ==
LOC: OR 07:13
PROVIDERS: ATTEND Surgery
DX: N63.10 Unspecified lump in the right breast, unspecified quadrant (principal); D18.01 Hemangioma of skin and subcutaneous tissue; I10 Essential (primary) hypertension; E78.5 Hyperlipidemia, unspecified; J44.9 Chronic obstructive pulmonary disease, unspecified; F17.210 Nicotine dependence, cigarettes, uncomplicated; M54.50 Low back pain, unspecified; Z15.01 Genetic susceptibility to malignant neoplasm of breast; Z88.5 Allergy status to narcotic agent; Z88.9 Allergy status to unspecified drugs, medicaments and biological substances; Z88.8 Allergy status to other drugs, medicaments and biological substances; Z79.899 Other long term (current) drug therapy
CPT/HCPCS: 88305; 15839; J2250; J0330; J1644; J0690; J2405; J2003; J3010; J0131; J2704

== ENCOUNTER → 2024-09-02 | Outpatient (CLI) | payer OTHER ==
[2024-09-02 08:49] VITALS: BP 145/82; PULSE 75; RESP 17; TEMP 98.1
--- NOTE | 2024-09-02 09:03 | P.BCPO ---
Progress Note - Text Progress Note Date: 09/02/24 Gem is status post revision of surgical scar on 08 23 24. Pathology revealed benign breast and fibroadipose tissue and scar with fibrous scar. Focal area of superficial skin dermis having features favoring benign hemangioma. Examination: Lungs: Some mild wheezing at bases Heart: Regular rate and rhythm Incision: Clean and dry Impression: Patient doing well postoperative Plan: Follow-up 6 months for surveillance Follow-up sooner any questions or concerns CC: Dr. Pickett
== END ==
LOC: WWCWWP 08:38
PROVIDERS: ATTEND Surgery
DX: N60.29 Fibroadenosis of unspecified breast (principal); F17.210 Nicotine dependence, cigarettes, uncomplicated; Z88.5 Allergy status to narcotic agent; Z88.8 Allergy status to other drugs, medicaments and biological substances; Z91.09 Other allergy status, other than to drugs and biological substances

== ENCOUNTER → 2024-09-13 | Outpatient (CLI) | payer OTHER ==
--- NOTE | 2024-09-13 11:19 | US ---
EXAMINATION TYPE: US kidneys/renal and bladder DATE OF EXAM: 09/13/2024 COMPARISON: CT abdomen and pelvis 05/30/2020 CLINICAL INDICATION: Female, 59 years old with history of N18.31 CKD; Abnormal labs TECHNIQUE: Grayscale imaging of the bilateral kidneys and urinary bladder: FINDINGS: EXAM MEASUREMENTS: Right Kidney: 9.6 x 3.8 x 4.6 cm Left Kidney: 9.6 x 4.4 x 4.0 cm Right Kidney: No hydronephrosis or masses seen Left Kidney: Anechoic lesion on lateral inferior pole = 0.9 x 0.7 x 0.8 cm Bladder: wnl Bilateral Jets seen: Yes There is no evidence for hydronephrosis at this point in time. No nephrolithiasis is seen. No solid masses are identified. Left renal inferior lateral pole subcentimeter cyst. Cortical medullary diffe rentiation is maintained bilaterally. The urinary bladder is anechoic. IMPRESSION: No hydronephrosis or nephrolithiasis. [facility], , 09/13/2024 11:17 AM
== END | disposition home or self-care (01) ==
LOC: RADUSWWP 10:24
PROVIDERS: ATTEND Internal Medicine Nephrology
DX: N18.31 Chronic kidney disease, stage 3a (principal); N28.1 Cyst of kidney, acquired
CPT/HCPCS: 76770